=== PATIENT | female | born 1965 | race Caucasian/White ===

== ENCOUNTER → 2017-12-11 15:12 | Outpatient (CLI) | payer OTHER, SELFPAY ==
--- NOTE | 2017-12-11 | DI.MG.S_ITS ---
BILATERAL DIGITAL SCREENING MAMMOGRAM 3D/2D WITH CAD: 12/11/2017 CLINICAL: Routine screening. Family history of breast cancer. Comparison is made to exams dated: 03/21/2016 mammogram, 03/02/2012 mammogram, and 04/13/2009 mammogram - [facility]. There are scattered fibroglandular elements in both breasts. Current study was also evaluated with a Computer Aided Detection (CAD) system. No significant masses, calcifications, or other findings are seen in either breast. There has been no significant interval change. IMPRESSION: NEGATIVE There is no mammographic evidence of malignancy. A 1 year screening mammogram is recommended. This exam was interpreted at Station ID: [id number]. NOTE: For mammograms, a report in lay terms will be sent to the patient. Approximately 15% of breast malignancies will not be visualized mammographically. In the management of a palpable breast mass, a negative mammogram must not discourage biopsy of a clinically suspicious lesion. Electronically Signed By: Dmitriy gonzalez/tiera:12/11/2017 16:06:55 letter sent: Normal Exam ACR BI-RADS Category 1: Negative [id number]
== END ==
PROVIDERS: Family Provider Family Medicine; PCP Family Medicine; Visit Provider Family Medicine
DX: Z12.31 Encounter for screening mammogram for malignant neoplasm of breast (principal)
CPT/HCPCS: 77063; 77067

== ENCOUNTER → 2019-05-20 18:26 | Outpatient (CLI) | payer OTHER, SELFPAY ==
--- NOTE | 2019-05-20 18:31 | DI.MRI.S_ITS ---
PROCEDURE: MR HIP LT WO CON INDICATIONS: left hip pain, low back strain TECHNIQUE: Noncontrast coronal T1 spin echo and STIR through the bony pelvis. Coronal and axial T2 fast spin echo with fat saturation, sagittal T1 spin echo, and oblique axial T2 fast spin echo with fat saturation through the hip. COMPARISON: None. FINDINGS: Image quality: Excellent. Bones and joints: No discrete fracture line identified. There is a large left hip joint effusion. Severe left hip degeneration with full-thickness articular cartilage loss, subchondral sclerosis and spurring as well as cystic changes. Adjacent para-articular soft tissue edema presumably reactive. No evidence of osteonecrosis seen. Mild lower lumbar spondylosis. Right hip degenerative changes. Tendons and ligaments: The gluteus medius and minimus tendons appear intact, without associated muscle atrophy. The nearby proximal iliotibial band also appears intact. The iliopsoas tendon appears intact, without adjacent bursal fluid collections or evidence for impingement syndrome. The origin of the hamstring tendon is intact at the ischial tuberosity, as well as the associated sacrotuberous ligament. The straight and reflected heads of the rectus femoris muscle origin appear intact, as well as the conjoint tendon. The ligamentum teres appears intact where visualized. Labrum and cartilage: Severe macerated tear involving the anterosuperior and superior labrum. The superior segment is not well visualized. This finding likely chronic. There is prominent loculated appearing fluid adjacent to the superior labrum and extending to the left iliac wing which could be related to joint effusion, versus unusually large paralabral cyst The alpha angle of the femur is within normal limits at less than 55 degrees. Soft tissues: Minimal trochanteric bursal fluid/edema Quadratus femoris muscle demonstrates no internal edema to suggest ischiofemoral impingement. The proximal sciatic neurovascular bundle appears normal adjacent to the hamstring tendons. No free pelvic fluid. Bladder wall thickness is normal. Genitourinary structures and bowel loops appear normal where visualized. IMPRESSION: Severe left hip joint degeneration, with associated large effusion. Prominent cystic appearing fluid collection adjacent to the superior acetabulum could be extension of joint fluid and/or unusually large paralabral cyst. Macerated, complex tear involving the anterosuperior and superior labrum, probably chronic/degenerative Dictated by: Gerard Gooden M.D. on 05/23/2019 at 8:32 Approved by: Gerard Gooden M.D. on 05/23/2019 at 8:46
--- NOTE | 2019-05-20 18:31 | DI.MRI.S_ITS ---
PROCEDURE: MR LUMBAR SPINE WO CON INDICATIONS: low back pain, ongoing TECHNIQUE: Noncontrast sagittal T1 spin echo and T2 fast echo, sagittal STIR, axial T1 and T2 fast spin echo through the lumbar spine. In cases with scoliosis, additional coronal T2 fast spin echo may be performed. COMPARISON: None. FINDINGS: Image quality: Excellent. Alignment and Curvature: Grade 1 retrolisthesis of L1 on L2. Bone Marrow: No acute fracture notified. Multilevel degenerative endplate sclerosis and spurring. Diffuse facet arthropathy. Endplate degenerative signal changes most pronounced at L1-L2. Spinal Cord: Conus medullaris terminates at the L1-L2 level. Visualized cord demonstrates normal signal and size. Paraspinous Soft Tissues: No paravertebral masses. L1-L2: Mild central canal narrowing. Partial effacement of both lateral recesses with bilaterally symmetric appearance. Severe bilateral foraminal stenosis with nerve root compression. L2-L3: Mild central canal narrowing. Partial effacement of both lateral recesses with bilaterally symmetric appearance. Severe bilateral foraminal stenoses, with nerve root compression. L3-L4: Mild central canal narrowing. Lateral recesses appear patent. Severe right foraminal stenosis with nerve root compression. Mild left foraminal narrowing. L4-L5: Mild central canal narrowing. Partial effacement of both lateral recesses with bilaterally symmetric appearance. Moderate right foraminal stenosis with slight nerve root compression. Moderate left foraminal stenosis with nerve root compression. L5-S1: No central canal stenosis. Lateral recesses appear patent. Moderate left foraminal narrowing with nerve root compression. Mild-moderate right foraminal narrowing IMPRESSION: Grade 1 retrolisthesis of L1 on L2 Multilevel mild central canal narrowing Numerous, bilateral foraminal stenoses as detailed by spinal level above. Dictated by: Gerard Gooden M.D. on 05/23/2019 at 9:35 Approved by: Gerard Gooden M.D. on 05/23/2019 at 9:42
== END ==
PROVIDERS: Family Provider Family Medicine; PCP Family Medicine; Visit Provider Nurse Practitioner Family
DX: S39.012A Strain of muscle, fascia and tendon of lower back, initial encounter (principal); M25.552 Pain in left hip; M25.452 Effusion, left hip; S73.192A Other sprain of left hip, initial encounter; M16.12 Unilateral primary osteoarthritis, left hip; M47.816 Spondylosis without myelopathy or radiculopathy, lumbar region; M43.16 Spondylolisthesis, lumbar region; M48.061 Spinal stenosis, lumbar region without neurogenic claudication; M48.07 Spinal stenosis, lumbosacral region
CPT/HCPCS: 72148; 73721

== ENCOUNTER → 2019-06-28 10:13 | Outpatient (CLI) | payer OTHER, SELFPAY ==
--- NOTE | 2019-06-28 10:16 | DI.RAD.S_ITS ---
PROCEDURE: XR KNEE RT 3V INDICATIONS: right knee pain TECHNIQUE: 3 views of the knee were acquired. COMPARISON: [facility], CR, XR KNEE ARTHRITIC SERIES , 10/09/2015, 16:19. FINDINGS: Bones: No fractures or dislocations. No suspicious bony lesions. Moderate narrowing of the medial joint space. Scattered degenerative subchondral sclerosis and spurring. Bulky osteophytic spurring Soft tissues: Small joint effusion. IMPRESSION: Moderate right knee joint degeneration, slightly progressed since 10/09/15. Small joint effusion Dictated by: Gerard Gooden M.D. on 06/28/2019 at 11:16 Approved by: Gerard Gooden M.D. on 06/28/2019 at 11:19
--- NOTE | 2019-06-28 10:24 | DI.CT.S_ITS ---
PROCEDURE: CT LE LT W CON INDICATIONS: Unilateral primary osteoarthritis, left hip TECHNIQUE: Noncontrast 3 mm axial sections acquired through the bony pelvis. Additional 3 mm axial sections acquired through the symptomatic hip joint, with coronal and sagittal reformats. COMPARISON: [facility] [place], CR, XR PELVIS WITH LATERAL HIP LEFT, 06/03/2019, 16:45. FINDINGS: Image quality: Excellent. Bones: Severe left hip osteoarthritic changes are seen with near complete loss of superior articulating space, extensive subchondral sclerosis and cyst formation and prominent marginal osteophyte formation. Mild to moderate right hip joint osteoarthritic changes also noted. There is no fracture or dislocation. No evidence of avascular necrosis of femoral head. Soft tissues: There is no gross muscle or tendon abnormality. No significant joint effusion. Visualized portion of pelvis shows no free fluid or free air. No abnormal bowel wall thickening. Bilateral ureters or urinary bladder are within normal limits. No pelvic lymphadenopathy. IMPRESSION: 1. Severe left hip joint osteoarthritis and mild to moderate right hip joint osteoarthritis. No fracture or dislocation. No evidence of avascular necrosis of femoral head. 2. No gross soft tissue abnormality. Dictated by: [place] Balderas M.D. on 06/28/2019 at 11:57 Approved by: [place] Balderas M.D. on 06/28/2019 at 13:09
== END ==
PROVIDERS: Family Provider Family Medicine; PCP Nurse Practitioner Family; Visit Provider Orthopaedic Surgery
DX: M16.0 Bilateral primary osteoarthritis of hip (principal); M25.561 Pain in right knee; M17.11 Unilateral primary osteoarthritis, right knee; M25.461 Effusion, right knee
CPT/HCPCS: 73562; 73700

== ENCOUNTER → 2019-07-05 08:33 | Outpatient (CLI) | payer OTHER, SELFPAY ==
[2019-07-05 09:31] LABS: Add Manual Diff / Slide Review NO; Basophils Absolute Auto 0 /uL (0-100); Basophils Percent Auto 0.7 % (0-2); Eosinophils Absolute Auto 100 /uL (0-450); Eosinophils Percent Auto 2.6 % (2-4); Hematocrit 35.9 % (36-46); Lymphocytes Absolute Auto 1500 /uL (1100-4500); Lymphocytes Percent Auto 29.1 % (25-40); Mean Corpuscular HGB Conc 33.4 % (30-36); Mean Corpuscular Hemoglobin 27.4 PG (26-34); Mean Corpuscular Volume 82.1 fL (80-100); Monocytes Absolute Auto 400 /uL (0-900); Monocytes Percent Auto 7.1 % (3-14); Neutrophils Absolute Auto 3100 /uL (1500-7000); Neutrophils Percent Auto 60.5 % (50-75); Platelet Count 254 X10^3/uL (150-400); Red Blood Cell Count 4.37 X10^6/uL (4.0-5.2); Red Cell Distribution Width 12.9 % (11.6-14.8); White Blood Cell Count 5.1 X10^3/uL (4.5-11.0)
[2019-07-05 09:55] LABS: Carbon Dioxide 25 mmol/L (22-32); Chloride 102 mmol/L (98-107); HEMOLYSIS < 15 (0-50); Potassium 4.2 mmol/L (3.4-5.1); Sodium 138 mmol/L (137-145)
== END ==
PROVIDERS: PCP Nurse Practitioner Family; Visit Provider Orthopaedic Surgery
DX: Z01.818 Encounter for other preprocedural examination (principal); Z01.812 Encounter for preprocedural laboratory examination
CPT/HCPCS: 36415; 80051; 85025; 93005

== ENCOUNTER 2019-07-20 10:54 | Inpatient (IN) | payer OTHER, SELFPAY ==
[2019-07-15 13:37] VITALS: BMI 29.8
[2019-07-20] VITALS (11 sets, daily range): BP systolic 93–121; BP diastolic 54–79; PULSE 54–77; RESP 10–16; TEMP 36.1–36.9; O2SAT 12–100; BMI 27.6
--- NOTE | 2019-07-20 06:00 | DI.RAD.S_ITS ---
PROCEDURE: XR PELVIS 1-2V INDICATIONS: NEMO TECHNIQUE: 1 view of the lower pelvis acquired. COMPARISON: [facility] [place], CR, XR PELVIS WITH LATERAL HIP LEFT, 06/03/2019, 16:45. FINDINGS: Bones: Patient is status post left hip arthroplasty, with hardware components in expected positions. The hip joint appears congruent. The visualized bony structures appear intact. Mild right degeneration of lower lumbar spondylosis. Soft tissues: Overlying postoperative changes are noted. No suspicious soft tissue densities. IMPRESSION: Expected postoperative appearance Dictated by: Gerard Gooden M.D. on 07/20/2019 at 18:10 Approved by: Gerard Gooden M.D. on 07/20/2019 at 18:11
[2019-07-20] MEDS: PREGABALIN 75 MG CAPSULE PO (12:48)
[2019-07-20] MEDS: ACETAMINOPHEN 325 MG TABLET 975 MG PO (12:48)
[2019-07-20] MEDS: CELECOXIB 200 MG CAPSULE PO (12:48)
--- NOTE | 2019-07-20 14:11 | PM.PREOP ---
Pre-operative Note Interval Note History & Physical reviewed/Exam performed by Physician: Yes Changes to H&P: No
[2019-07-20] MEDS: LACTATED RINGERS 1,000 ML 42 ML IV ×2 (14:16→15:04)
[2019-07-20] MEDS: CEFAZOLIN 1 GM/50 ML FROZ.PIGGY IV (14:27)
[2019-07-20] MEDS: TRANEXAMIC ACID 1,000 MG VIAL 2000 MG INJ ×2 (14:50→15:40)
--- NOTE | 2019-07-20 15:00 | SUR.OPER ---
Lateral on padded OR bed. Gel axillary roll. Arms secured on padded armboard with pillow supporting top arm. Padded hip positioner braces x4 - anterior and posterior chest and pelvis. Additional gel pad used anterior pelvis. Gel pad under bottom leg from knee to foot and secured with tape over sheet.
[2019-07-20] MEDS: ROPIVACAINE 0.5% PF 5 MG/ML 20ML VIAL 60 ML INJ (15:03)
[2019-07-20] MEDS: MORPHINE 4 MG/ML INJ INJ (15:08)
[2019-07-20] MEDS: KETOROLAC 30 MG/ML VIAL IV (15:08)
--- NOTE | 2019-07-20 16:07 | P.OP_ITS ---
Operative Date/Time/Diagnoses Date of procedure: 07/20/19 Time of procedure: 16:07 Pre-op diagnosis: Left hip degenerative joint disease Post-op diagnosis: same Procedure & Clinicians Procedure: Left total hip arthroplasty (CPT code 67541 with specimen preparation assistant) Same procedure as scheduled: Yes Indications: Patient is an 54-year-old female with severe left hip DJD. The patient has pain with activities and at rest, limited ambulation and activity tolerance, difficulties with ADLs, and failure of conservative treatment. We have discussed the nature of condition, treatment options, risks and benefits, and patient elects to proceed with total hip arthroplasty and gives informed consent. Surgeon: Jefry Valladares Environmental Services Attendant: Zhen Peguero Anesthesia Type: General and Spinal Operative Notes Closure Type: primary Specimen(s): none sent Prosthetic devices, grafts, tissues, transplants, or devices: Acetabulum: Drake and Nephew R3 acetabular component size 50 mm Femoral component: Drake [employer] Nephew Anthology stem size 6 with standard offset Femoral head: 32 mm + 0 Oxinium Estimated Blood Loss (mL): 200 Procedure in detail: After satisfaction induction of anesthetic, and administration of IV antibiotics, the patient was positioned in the lateral decubitus position with all bony prominences well padded and pelvic position secured using a hip hospital receiving clerk positioning device. Left hip and lower extremity prepped and draped in the usual sterile fashion, 1st dose of intravenous harrison examic acid was administered, then a longitudinal incision was created centered over the greater trochanter and carried sharply through the skin and subcutaneous tissues down to the fascia hector which was divided longitudinally and retracted with a Charnley retractor. External rotators visualize, cut, tagged, and retracted posteriorly, then the capsule was cut in a T-type fashion with the corners tagged and retracted. Hip was dislocated and femoral neck cut made according to preoperative templating. Acetabular retractors then placed, and the acetabular labrum and osteophytes were excised. The acetabulum was then sequentially reamed to 49 mm with an excellent circumferential ream and fit with the trial. The trial component was removed and a permanent size 50 mm Drake and Nephew R3 acetabular component was selected, positioned, and impacted with satisfactory position and fixation achieved. Permanent liner was then inserted with the elevated lip directed posteriorly. Soft tissue then removed off the lateral femoral neck in the lateral neck was entered using a box osteotome. T- handled reamers placed down the canal followed by sequential broaching to 6 with the final broach left in place for trial reduction which demonstrated excellent leg length, range of motion, and stability characteristics with a 32 mm +4 trial ball. The trial and broach were removed, and a permanent size 6 Drake and Nephew Anthology stem was selected and inserted with excellent position and fixation achieved. Another trial reduction yielded the above characteristics so the trial ball was exchanged for a permanent 32 mm +4 Oxinium ball. The hip was irrigated and reduced and excellent leg length range of motion and stability characteristics were achieved and maintained. Periarticular tissues were infil trated with ropivacaine, morphine, and Toradol. The hip was copiously irrigated, and the capsule repaired with #2 Ethibond, and the piriformis was repaired back to the greater trochanter with the same. Fascia hector closed with interrupted #1 Ethibond sutures, and the subcutaneous tissues were closed in 2 layers of 0 Vicryl and 2 0 Vicryl. Skin was closed with angelique and sterile dressings applied. Second dose of tranexamic acid was administered intravenously, and the anesthetic was terminated. Complications: none Post-operative Condition: stable Disposition: PACU Plan for aftercare: Patient will be admitted to the acute care [facility], and anticipate discharge on postop day 1-2 with follow-up in office in 10-14 days. Outpatient physical therapy will be arranged and patient will continue to observe posterior hip precautions. Patient will continue use of postoperative Lovenox for 10 days postop.
[2019-07-20] MEDS: ONDANSETRON 4 MG/2 ML INJ IV (17:55)
[2019-07-20] MEDS: LACTATED RINGERS 1,000 ML 125 ML IV (17:55)
--- NOTE | 2019-07-20 19:40 | PC.NURSE ---
1700: Patient admitted from PACU to room 211 S/P Left NEMO by Dr. Valladares. Awake, alert, and pleasant. Oriented to room, environment, and plan of care. Call light within reach. Calls appropriately for assistance.
[2019-07-20] MEDS: HYDROCODONE/ACET 5/325 TABLET 1 TAB PO (23:25)
[2019-07-20] MEDS: CEFAZOLIN 2 GM/100 ML FROZ.PIGGY IV (23:25)
--- NOTE | 2019-07-20 23:50 | PC.NURSE ---
Gabriella shift note: Patient c/o pain to Left lower/mid thigh and incisional pain with movement. Strength to LLE 3+, able to move foot, full ROM. 2+ pulses, warm, pink, and sensation present to foot and upper thigh. Mild numbness to mid thigh. Medicated for pain as ordered.
[2019-07-21] VITALS (7 sets, daily range): BP systolic 94–118; BP diastolic 49–74; PULSE 86–103; RESP 16–18; TEMP 36.4–37.3; O2SAT 99–100
[2019-07-21] MEDS: ONDANSETRON 4 MG/2 ML INJ IV
[2019-07-21] MEDS: hydrOXYzine pamoate 25 MG CAPSULE PO ×3 (00:15→20:29)
[2019-07-21] MEDS: LACTATED RINGERS 1,000 ML 125 ML IV (02:09)
[2019-07-21] MEDS: HYDROCODONE/ACET 5/325 TABLET 1 TAB PO ×4 (05:02→20:28)
[2019-07-21] MEDS: CEFAZOLIN 2 GM/100 ML FROZ.PIGGY IV (05:03)
--- NOTE | 2019-07-21 05:08 | PC.NURSE ---
Pt is AxOx3, VSS, tolerating room air. Vomitted 100cc bile at start of shift. b/l SCDs on throughout night Pain has been well controlled so far with 1 vicodin and vistaril. Pt stated she thought the Vistaril really helped a lot. She reports most of her pain along with some numbness from her mid calf to mid thigh on her left leg. 1P FWW to bathroom, did well. Pt reporting this morning her being concerned over her left groin pain. States it's pretty bad and it happened a few months ago after she fell but it seems worse now. Will pass along to day shift and told her to bring up during rounds to the doctors
[2019-07-21 06:26] LABS: Hematocrit 27.4 % (36-46); Hemoglobin 9.3 g/dL (12.0-16.0)
[2019-07-21] MEDS: ENOXAPARIN 40 MG/0.4 ML SYRINGE SUBCUT (09:05)
--- NOTE | 2019-07-21 09:53 | P.PN_ITS ---
Subjective Subjective Date Patient Seen: 07/21/19 Time Patient Seen: 09:53 Interval history: Pain 7/10. Denies fever chills. No nausea vomiting. Patient does live alone. Her daughter may be available tomorrow to assist her when discharged home. Exam Vital Signs (past 8 hours): - 07/21/19 05:51 07/21/19 07:43 Temperature 98.6 F 97.6 F Pulse Rate 86 96 H Respiratory Rate 18 16 Blood Pressure 112/49 L 118/73 Pulse Oximetry 99 99 Oxygen Delivery Method Room Air Oxygen Flow Rate 0 Narrative Exam Narrative: 54-year-old female resting comfortably in bedside chair in no a pparent distress. Left hip dressing is clean, dry and intact. Motor functions intact distal left lower extremity. Left leg is warm and dry. Sensation grossly intact to light touch. Objective Labs Result Diagrams: 07/21/19 06:12 Labs: Laboratory Results - last 24 hr 07/21/19 06:12 Hgb 9.3 L Hct 27.4 L Assessment & Plan Post-op Postoperative Procedures: Procedures Operation Date: 07/20/19 13:45 Actual Procedures Side Surgeon p Total Hip Arthroplasty Left Jefry Valladares MD Postop day 1. Mobilize with physical therapy. Patient does live alone and may have assistance at home starting tomorrow. Depending on her progress she may be discharged home tomorrow and or Thursday. Posterior hip precautions.
--- NOTE | 2019-07-21 11:06 | PT.IIE ---
Current Diagnoses Unilateral primary osteoarthritis, left hip (07/20/19) Surgery Performed Operation Date: 07/20/19 13:45 Actual Procedures p Total Hip Arthroplasty(Left) - Jefry Valladares MD Surgical History (Last Reviewed 03/04/19 @ 11:21 by Steph Snell MD) Status post delivery Medical History (Last Updated 07/15/19 @ 14:16 by Toshia Ferraro RN) Anxiety (Acute) Carpal tunnel syndrome, bilateral (Acute) Depression (Acute) Heartburn (Acute) HLD (hyperlipidemia) (Acute) Lumbar foraminal stenosis (Acute 05/2019) Osteoarthritis (Acute) Pneumonia (Acute) Right knee pain (Acute 04/2019) Physical Therapy Inpatient Evaluation/Re-Eval M1 PT/OT-IP Prior Functional Status Start: 07/21/19 12:44 Freq: NEEDED Status: Active Protocol: Document 07/21/19 11:06 AB (Rec: 07/21/19 13:09 [id number]) Medical Review Prior Functional Status Medical History Reviewed Yes Communication able to make needs known Mobility and Gait pt stated tht she is modified independent with all mobilities and ambulation using a SPC indoors/outdoors Social History Household Members none Living Arrangements House Number of Floors (Floors) Two Floors Number of Stairs To Enter/Railing? has 3 steps without rails + 8 steps with R rail ascending to enter the house has 12 steps with R rail ascending to get to 2nd level bathroom Home Environment Standard Height Toilet,Walk in Shower Home Equipment Four Wheel Walker,Straight Cane,Bedside Commode,Raised Toilet Seat w/Armrests,Hand Held Shower Additional Social History Comment pt stated that her daughter will stay with her only until Thursday to assist her and just have neighbors/friends that will assist as needed. pt lives at [place] [id number] PT-IP Current Condition Start: 07/21/19 12:44 Freq: NEEDED Status: Active Protocol: Document 07/21/19 11:06 AB (Rec: 07/21/19 13:09 AB [id number]) Physical Therapy Current Condition Current Condition Evaluation Date 07/21/19 Treatment Diagnosis s/p L NEMO posterior approach; difficulty in walking Onset Date 07/20/2019 Precautions Posterior Hip Precautions No Hip Flexion > 90 degrees,No Hip Internal Rotation,No Hip Adduction Weight Bearing Status Weight Bearing Status Weight Bear as Tolerated Allowed Weight Bearing Amount (enter % LLE WBAT or #) (%) M3 PT-IP Subjective Start: 07/21/19 12:44 Freq: NEEDED Status: Active Protocol: Document 07/21/19 11:06 AB (Rec: 07/21/19 13:09 [id number]) Subjective Physical Therapy Visit Type Type Initial Evaluation Visit Start Time 11:06 Visit Stop Time 11:50 Total Visit Minutes 44 Number of JACK SETTER Visits 0 Physical Therapy Visit Comments Patient Comments pt agreeable to do PT but refused to stay up on the chair; c/o feeling really tired. Therapy Pain Assessment Pain When Pain Assessed At Rest Pain Present Pain Present Pain Reported Location Left Groin Intensity 4 Scale Used increases to 7/10 with mobility Pain Management Techniques Apply Cold,Re-positioning, Timing of Activity with Medications M4 PT-IP Mobility and Gait Start: 07/21/19 12:44 Freq: NEEDED Status: Active Protocol: Document 07/21/19 11:06 AB (Rec: 07/21/19 13:09 [id number]) PT-Bed Mobility Assessment Supine to Sit Supine to Sit Moderate Assistance,1 Person Assistance Sit to Supine Sit to Supine Maximum Assistance,1 Person Assistance PT-Transfer Assessment Sit to and From Stand Sit to and from Stand Moderate Assistance,1 Person Assistance,Use of Upper Extremities Equipment Transfer Assistive Device Gait Belt,Front Wheeled Walker Orthotic/Prosthetic Devices or Brace: No Transfers Transfer Destination Bed,Chair Transfer Technique ambulated using FWW Transfer Ability Level of Assist Moderate Assistance,1 Person Assistance,Use of Upper Extremities Comments Mobility Comments pt supine in bed and agreed to do PT. educated on hip precautions. BP: 116/75 completed supine to sit mod A and cues for LE mobility. pt was able to sit on EOB SBA. completed sit to stand mod A and cues to maintain hip precautions. ambulated in room towards the chair mod A using FWW ~ 12 ft. BP: 127/83 . pt refused to stay up on the chair for lunch. stated that she is just tired and wants to rest. completed sit to stand from the chair mod A and cues and completed step transfer to the bed using FWW min to mod A and cues. required max A to assist BLE up into the bed for sit to supine. positioned pt on the bed. call light and table placed within reach. Gait Assessment Gait Gait Assistance Required: Moderate Assistance,1 Person Assist Distance (Feet) 12 Able to Maintain Weight Bearing Status Yes During Gait Assistive Devices Assistive Device Gait Belt,Front Wheeled Walker Orthotic/Prosthetic Devices or Brace: No Gait Deviations General Gait Pattern Antalgic,Decreased Stride Length,Decreased Feet Clearance,Step-to Gait Factors Limiting Gait Function Factors Limiting Gait Function Decreased Activity Tolerance, Decreased Strength,Limited Range of Motion,Pain,Poor Balance,Poor Safety Awareness PT-Balance Assessment Sitting Balance and Reactions Static Sitting Balance Ability Good Dynamic Sitting Balance Ability Fair Standing Balance and Reactions Static Standing Balance Ability Fair Dynamic Standing Balance Ability Fair Device Used FWW M5 PT-IP Objective Assessments Start: 07/21/19 12:44 Freq: NEEDED Status: Active Protocol: Document 07/21/19 11:06 (Rec: 07/21/19 13:09 [id number]) Orientation Orientation/Cognition Level of Alertness Alert Orientation Name,Place,Situation Language Function Ability No Deficits Noted Safety Awareness Decreased Safety Awareness Memory Description Short Term Impaired Gross Range of Motion Lower Extremity ROM Assessment Left Impaired Impairments LLE guarding affecting PROM Strength Lower Extremity Strength Assessment Bilaterally Impaired Comments Strength Comments RLE 4-/5 LLE: 3-/5 Sensation Assessment Sensation Gross Sensation WNL Muscle Tone Muscle Tone WNL Yes M6 PT-IP Treatment Start: 07/21/19 12:44 Freq: NEEDED Status: Active Protocol: Document 07/21/19 11:06 (Rec: 07/21/19 13:09 [id number]) Physical Therapy Treatment Exercises Exercises Heel Slides Education Education Provided Precautions,Weight Bearing Status,Post-Op Packet,Safety M7 PT-IP Assessment and Plan Start: 07/21/19 12:44 Freq: NEEDED Status: Active Protocol: Document 07/21/19 11:06 AB (Rec: 07/21/19 13:09 [id number]) PT Summary Assessment and Plan Potential Rehabilitation Potential Good Status of Condition at Evaluation Evolving Summary Impairments Pain,ROM,Strength,Balance, Coordination,Sensation,Tone, Cognition,Bed Mobility, Transfers,Gait,Activity Tolerance Assessment Summary pt required mod A with mobility and unable to tolerate much activity today due to pain and c/o feeling tired. Pt lives alone and daughter will assist only until thursday and no consistent assistance afterwards. pt requires cues to adhere to her hip precautions. pt will require 24/7 assist at this time and will require SNF rehab to improve strength and functional mobility. Will continue to assess progress. Goals Bed Mobility Goal Standby Assistance Transfer Goal Standby Assistance,Front Wheeled Walker Gait Goal Standby Assistance,Front Wheel Walker Gait Distance 150 Other Goals up/down 3 steps using SPC/BUSINESS SPECIALIST + 8 steps with R rail ascending SBA Days to Meet Goals 5 Frequency of Treatment Frequency Of Treatment Twice a Day Treatment Plan Physical Therapy Treatment Plan Bed Mobility Training,Transfer Training,Gait Training, Therapeutic Exercise,Balance Retraining,Post Op Education, Discharge Planning,Hot or Cold Pack,Neuromuscular Re-ed, Coordination Retraining,Manual Therapy Recommendations To Nursing Amount of Assist Needed 1 Person Assist Discharge Recommendations PT Discharge Recommendations SNF Rehab Equipment Needed for Home Before FWW: pt stated that she will Discharge borrow one Transportation Needs at Discharge Private Vehicle,Wheelchair/ Cabulance
--- NOTE | 2019-07-21 13:34 | CM.IDA ---
Initial DCP Assessment Note: Pt is a [address] of [facility]. Pt is POD#1 from left hip surgery by Dr Valladares. PCP: Millie Loco Payer: [place] Reviewed chart. Met w/pt this morning, explained role. Pt admits that she thought she could DC to a SNF because [employer] customer service stated her benefit included SNF. Pt states she was educated by a local SNF that [employer] often will not authorize a scheduled joint replacement, and this was two days before her surgery. Pt decided to go through with surgery and she will be depending on her dtr to assist over the weekend, dtr available until Thursday morning. Pt states she has friends that could check on her after that. Pt seems the most concerned w/being able to keep her wood burning stove/fire going since this is her only source of heat. PT is currently recommending SNF because pt is requiring mod assist w/low activity tolerance today. UR FIDENCIO Hernandez has identified an inpt. authorization from [employer] w/o an initial length of stay which allows pt to comfortably remain admitted for inpt care, as long as medically necessary, DC home expected POD#2 or 3. OT eval might be helpful if pt still requires mod assist tomorrow AM ? Following closely for coordination of safe DCP. Private pay SNF option was not reviewed today. Pt may benefit from Home Health if [facility] will accept this referral and will take [place] ? MILO Godoy Discharge Planning/Care Management CM Discharge Assessment Start: 07/21/19 13:30 Freq: Status: Active Protocol: Document 07/21/19 13:31 JUDY (Rec: 07/21/19 13:34 JUDY [id number]) Discharge Planning Assessment Assigned Charging Board Operator MILO Malloy DPOA/Assigned Designee Name Maria T Epsarza dtr Contact Information [phone] Advance Directives? No History Provided By Patient Prior Living Arrangements House Household Members none Type of transporation used prior to Drives own vehicle admit Independent with ADL's Yes Is patient alert and oriented? Yes Barriers to Discharge Yes Comment Mod assist today, lives alone, wood burning fireplace Discharge Plan Home Transportation Arrangement Family Review Status In Process
--- NOTE | 2019-07-21 16:32 | PT.IPTN ---
Current Diagnoses Unilateral primary osteoarthritis, left hip (07/20/19) Surgery Performed Operation Date: 07/20/19 13:45 Actual Procedures p Total Hip Arthroplasty(Left) - eJfry Valladares MD Physical Therapy Treatment Note M2 PT-IP Current Condition Start: 07/21/19 12:44 Freq: NEEDED Status: Active Protocol: Document 07/21/19 11:06 AB (Rec: 07/21/19 13:09 AB [id number]) Physical Therapy Current Condition Current Condition Evaluation Date 07/21/19 Treatment Diagnosis s/p L NEMO posterior approach; difficulty in walking Onset Date 07/20/2019 Precautions Posterior Hip Precautions No Hip Flexion > 90 degrees,No Hip Internal Rotation,No Hip Adduction Weight Bearing Status Weight Bearing Status Weight Bear as Tolerated Allowed Weight Bearing Amount (enter % LLE WBAT or #) (%) M3 PT-IP Subjective Start: 07/21/19 12:44 Freq: NEEDED Status: Active Protocol: Document 07/21/19 16:00 SP (Rec: 07/21/19 17:01 SP [id number]) Subjective Physical Therapy Visit Type Type Treatment Note Visit Start Time 16:00 Visit Stop Time 16:32 Total Visit Minutes 32 Number of COOKIE MIXER HELPER Visits 1 Physical Therapy Visit Comments Patient Comments Pt agreeable to work with PT. Patient Goals Try some walking and stair mgt to see how can do at this time. Therapy Pain Assessment Pain When Pain Assessed During Mobility Pain Present Pain Present Pain Reported Location Left Thigh Intensity 4 Scale Used 0/10 at rest, 3-4/10 during mobility Pain Behaviors Facial Grimacing,Restlessness Pain Management Techniques Apply Cold,Re-positioning, Timing of Activity with Medications M4 PT-IP Mobility and Gait Start: 07/21/19 12:44 Freq: NEEDED Status: Active Protocol: Document 07/21/19 16:00 SP (Rec: 07/21/19 17:01 SP [id number]) PT-Bed Mobility Assessment Supine to Sit Supine to Sit Minimal Assistance,1 Person Assistance Scooting Scooting to Edge of Bed Standby Assistance Scooting Up and Down in Bed Standby Assistance PT-Transfer Assessment Sit to and From Stand Sit to and from Stand Standby Assistance,Contact Guard Assistance,Use of Upper Extremities Equipment Transfer Assistive Device Gait Belt,Front Wheeled Walker Orthotic/Prosthetic Devices or Brace: No Transfers Transfer Destination Bed Transfer Technique Pt ambulated using FWW Transfer Ability Level of Assist Standby Assistance,Contact Guard Assistance,Use of Upper Extremities Comments Mobility Comments Pt was laying in bed when arrived. Pt recalled 3/3 L hip precautions. Supine <> Sitting with Min A for LLE repositioning out of/into EOB. Pt was able to scoot to EOB SBA, scoot up in bed when came back from a walk/stair mgt. sit <> stand SBA. COOKIE MIXER HELPER placed pillow under LLE with positioning to assist maintain no IR. Pt was laying in bed with bed alarm armed, call light and allneeds inreach when left. Gait Assessment Gait Gait Assistance Required: Contact Guard Assist Distance (Feet) 15 Able to Maintain Weight Bearing Status Yes During Gait Assistive Devices Assistive Device Gait Belt,Front Wheeled Walker Orthotic/Prosthetic Devices or Brace: No Gait Deviations General Gait Pattern Antalgic,Decreased Stride Length,Decreased Feet Clearance,Step-to Gait Factors Limiting Gait Function Factors Limiting Gait Function Decreased Activity Tolerance, Decreased Strength,Limited Range of Motion,Pain,Poor Balance,Poor Safety Awareness Comments Gait Comments Pt was able to ambulate from L side of bed to chair using FWW CGA- SBA 15 ft, then chair to w/c in hallway, 5ft w/c to stairs and back to w/c, w/c inhallway to L side of bed 7 ft. Cuing for L knee flexion, heel toe gait with upright posture for normal progression patterning, improved post cues from walking on toes and slight supination. Stair Climbing Assessment Evaluation Level of Assist On Stairs Minimal Assistance,1 Person Assistance Devices Stair Climbing Assistive Devices Straight Cane,Right Railing Technique/Endurance Stair Climbing Direction Ascend and Descend Stair Climbing Technique Step to Step Number of Steps Climbed 3 Stair Climbing Set # Repetitions (reps) 1 Comments Stair Climbing Comments Pt was able to ascend 3 stairs using R HR and SPC in LUE step to patterning Min A with very brief single stance time on LLE, heavy WB on BUE, no LOB. PT-Balance Assessment Sitting Balance and Reactions Static Sitting Balance Ability Good Dynamic Sitting Balance Ability Fair Standing Balance and Reactions Static Standing Balance Ability Fair Dynamic Standing Balance Ability Fair Device Used FWW M5 PT-IP Objective Assessments Start: 07/21/19 12:44 Freq: NEEDED Status: Active Protocol: Document 07/21/19 11:06 AB (Rec: 07/21/19 13:09 AB [id number]) Orientation Orientation/Cognition Level of Alertness Alert Orientation Name,Place,Situation Language Function Ability No Deficits Noted Safety Awareness Decreased Safety Awareness Memory Description Short Term Impaired Gross Range of Motion Lower Extremity ROM Assessment Left Impaired Impairments LLE guarding affecting PROM Strength Lower Extremity Strength Assessment Bilaterally Impaired Comments Strength Comments RLE 4-/5 LLE: 3-/5 Sensation Assessment Sensation Gross Sensation WNL Muscle Tone Muscle Tone WNL Yes M6 PT-IP Treatment Start: 07/21/19 12:44 Freq: NEEDED Status: Active Protocol: Document 07/21/19 16:00 SP (Rec: 07/21/19 17:01 SP [id number]) Physical Therapy Treatment Education Education Provided Precautions,Weight Bearing Status,Safety M7 PT-IP Assessment and Plan Start: 07/21/19 12:44 Freq: NEEDED Status: Active Protocol: Document 07/21/19 16:00 SP (Rec: 07/21/19 17:01 SP [id number]) PT Summary Assessment and Plan Potential Rehabilitation Potential Good Status of Condition at Evaluation Evolving Summary Impairments Pain,ROM,Strength,Balance, Coordination,Sensation,Tone, Cognition,Bed Mobility, Transfers,Gait,Activity Tolerance Assessment Summary pt required min A with bed mobility, SBA- CGA during transfer and gait using FWW and Min A 3 stair mgt RHR adn SPC wtih LUE. Pt lives alone and daughter will assist only until thursday and no consistent assistance afterwards due to a student in college and work schedules. pt requires min cues to adhere to her hip precautions no IR . pt will require 24/7 assist at this time and will require SNF rehab to improve strength and functional mobility. Will continue to assess progress. Goals Bed Mobility Goal Standby Assistance Transfer Goal Standby Assistance,Front Wheeled Walker Gait Goal Standby Assistance,Front Wheel Walker Gait Distance 150 Other Goals up/down 3 steps using SPC/ORGANISATION AND METHODS ANALYST + 8 steps with R rail and SPC LUE ascending SBA Days to Meet Goals 5 Frequency of Treatment Frequency Of Treatment Twice a Day Treatment Plan Physical Therapy Treatment Plan Bed Mobility Training,Transfer Training,Gait Training, Therapeutic Exercise,Balance Retraining,Post Op Education, Discharge Planning,Hot or Cold Pack,Neuromuscular Re-ed, Coordination Retraining,Manual Therapy Recommendations To Nursing Amount of Assist Needed 1 Person Assist Discharge Recommendations PT Discharge Recommendations SNF Rehab Equipment Needed for Home Before FWW: pt stated that she will Discharge borrow one Transportation Needs at Discharge Private Vehicle,Wheelchair/ Cabulance
[2019-07-22 00:30] VITALS: BP 107/66; PULSE 97; RESP 16; TEMP 37.2; O2SAT 99
[2019-07-22] MEDS: HYDROCODONE/ACET 5/325 TABLET 1 TAB PO ×4 (03:51→21:06)
[2019-07-22 03:55] VITALS: BP 112/67; PULSE 90; RESP 18; TEMP 36.8; O2SAT 100
[2019-07-22 08:10] VITALS: BP 105/57; PULSE 91; RESP 16; TEMP 36.6; O2SAT 100
[2019-07-22] MEDS: ENOXAPARIN 40 MG/0.4 ML SYRINGE SUBCUT (08:25)
[2019-07-22] MEDS: SODIUM CHLORIDE 0.9% FLUSH 10 ML IV ×2 (08:26→20:51)
--- NOTE | 2019-07-22 09:55 | PM.PNPO.1 ---
Subjective Subjective Date Patient Seen: 07/22/19 Time Patient Seen: 09:55 Interval history: Patient complains of mild-moderate pain in L hip. States her pain is improving. Mobilizing with PT, recommends SNF. Voiding without difficulty or assistance. Denies fever, chills, chest pain, shortness of breath. Exam Vital Signs (past 8 hours): - 07/22/19 03:55 Temperature 98.2 F Pulse Rate 90 Respiratory Rate 18 Blood Pressure 112/67 Pulse Oximetry 100 Oxygen Delivery Method Room Air Oxygen Flow Rate 0 Narrative Exam Narrative: 54 year old F laying comfortably in bed, in no apparent distress. A&Ox3. Dressing CDI, SCDs in place. Sensory function grossly intact to light touch in LE BL. Able to actively dorsiflex/plantar flex BL. Dorsalis pedis 2+ BL. Calves warm, soft, compressible, non tender to palpation. Objective Labs Result Diagrams: 07/21/19 06:12 Assessment & Plan Post-op Postoperative Procedures: Procedures Operation Date: 07/20/19 13:45 Actual Procedures Side Surgeon p Total Hip Arthroplasty Left Jefry Valladares MD Postoperative status narrative: Continue current pain management Continue SCDs for DVT prophylaxis Continue mobilizing with PT Most likely discharge to SNF
--- NOTE | 2019-07-22 10:27 | PC.NURSE ---
Patients dressing to her L.hip is cdi, vicodin given for pain of 4/10. She gave herself her lovenox this morning and was not to excited to do it. She tolerated this well...Ate well at breakfast. She will be working with physical therapy this morning. Pain medication effective for discomfort.
[2019-07-22 11:45] VITALS: BP 105/66; PULSE 106; RESP 12; TEMP 36.4; O2SAT 100
--- NOTE | 2019-07-22 12:22 | PT.IPTN ---
Current Diagnoses Unilateral primary osteoarthritis, left hip (07/20/19) Surgery Performed Operation Date: 07/20/19 13:45 Actual Procedures p Total Hip Arthroplasty(Left) - Jefry Valladares MD Physical Therapy Treatment Note M2 PT-IP Current Condition Start: 07/21/19 12:44 Freq: NEEDED Status: Active Protocol: Document 07/21/19 11:06 AB (Rec: 07/21/19 13:09 AB [id number]) Physical Therapy Current Condition Current Condition Evaluation Date 07/21/19 Treatment Diagnosis s/p L NEMO posterior approach; difficulty in walking Onset Date 07/20/2019 Precautions Posterior Hip Precautions No Hip Flexion > 90 degrees,No Hip Internal Rotation,No Hip Adduction Weight Bearing Status Weight Bearing Status Weight Bear as Tolerated Allowed Weight Bearing Amount (enter % LLE WBAT or #) (%) M3 PT-IP Subjective Start: 07/21/19 12:44 Freq: NEEDED Status: Active Protocol: Document 07/22/19 11:47 KS (Rec: 07/22/19 15:54 KS [id number]) Subjective Physical Therapy Visit Type Type Treatment Note Visit Start Time 11:47 Visit Stop Time 12:22 Total Visit Minutes 35 Notes Pts daughter present for caregiver training. Pts daugther can only stay w/ pt until Thursday and then pt will be alone. Number of SWITCHBOARD AND CONTROL ROOM OPERATOR Visits 2 Physical Therapy Visit Comments Patient Comments Pt agreeable to work with PT. Therapy Pain Assessment Pain When Pain Assessed During Mobility Pain Present Pain Present Pain Reported Location Left Thigh Intensity 5 Scale Used Numeric (1 - 10) Pain Behaviors Guarding Pain Management Techniques Re-positioning M4 PT-IP Mobility and Gait Start: 07/21/19 12:44 Freq: NEEDED Status: Active Protocol: Document 07/22/19 11:47 KS (Rec: 07/22/19 15:54 KS [id number]) PT-Bed Mobility Assessment Scooting Scooting to Edge of Bed Standby Assistance Scooting Up and Down in Bed Standby Assistance PT-Transfer Assessment Sit to and From Stand Sit to and from Stand Standby Assistance,Contact Guard Assistance,Use of Upper Extremities Equipment Transfer Assistive Device Gait Belt,Front Wheeled Walker Orthotic/Prosthetic Devices or Brace: No Transfers Transfer Destination Chair,Toilet Transfer Technique Pt ambulated using FWW Transfer Ability Level of Assist Standby Assistance,Contact Guard Assistance,Use of Upper Extremities Comments Mobility Comments Pt was sitting in chair upon arrival from therapy w/ daugther in room. SBA for scooting to edge of chair and SBA to CGA for sit<>stand w/ FWW. Pt then requested to use the bathroom, SBA for stand<> sit<>stand from toilet. Pt then washed hands and brushed teeth at sink for 2 min and was able to remain balanced and weight bearing through L LE. Pt then ambulated outside to hallway and sat in w/c CGA to be taken to stairs, returned to room and sat back in chair CGA. Pt able to recall all hip precautions. Pt still has low tolerance for activity and fatigues quickly following stairs and ambulation. Gait Assessment Gait Gait Assistance Required: Contact Guard Assist Distance (Feet) 50 Able to Maintain Weight Bearing Status Yes During Gait Assistive Devices Assistive Device Gait Belt,Front Wheeled Walker Orthotic/Prosthetic Devices or Brace: No Gait Deviations General Gait Pattern Antalgic,Decreased Stride Length,Decreased Feet Clearance,Step-to Gait Factors Limiting Gait Function Factors Limiting Gait Function Decreased Activity Tolerance, Decreased Strength,Limited Range of Motion,Pain,Poor Balance,Poor Safety Awareness Comments Gait Comments Pt able to ambulate CGA ~50 ft today. Pt has antalgic gait and decreased stride length and foot clearance due to pain and limited ROM and decreased actvity tolerance. Cues for upright posture, pts gait improved w/ further distance. Stair Climbing Assessment Evaluation Level of Assist On Stairs Minimal Assistance,1 Person Assistance Devices Stair Climbing Assistive Devices Straight Cane,Right Railing Technique/Endurance Stair Climbing Direction Ascend and Descend Stair Climbing Technique Step to Step Number of Steps Climbed 3 Stair Climbing Set # Repetitions (reps) 3 Comments Stair Climbing Comments Pt was able to ascend/descend 3 steps x3 w/ step to step gait pattern and Min A for hand hold while other hand using SPC for first set. Min cues for sequencing. Pt then did second set of stairs w/ hand hold and R rail, Pt and daugther then completed caregiver training for 3rd set of stairs, pts daughter was able to provide effective guarding, cues, and handhold assist while patient ascended/ descended 3 steps. PT-Balance Assessment Sitting Balance and Reactions Static Sitting Balance Ability Good Dynamic Sitting Balance Ability Fair Standing Balance and Reactions Static Standing Balance Ability Fair Dynamic Standing Balance Ability Fair Device Used FWW M5 PT-IP Objective Assessments Start: 07/21/19 12:44 Freq: NEEDED Status: Active Protocol: Document 07/21/19 11:06 AB (Rec: 07/21/19 13:09 AB [id number]) Orientation Orientation/Cognition Level of Alertness Alert Orientation Name,Place,Situation Language Function Ability No Deficits Noted Safety Awareness Decreased Safety Awareness Memory Description Short Term Impaired Gross Range of Motion Lower Extremity ROM Assessment Left Impaired Impairments LLE guarding affecting PROM Strength Lower Extremity Strength Assessment Bilaterally Impaired Comments Strength Comments RLE 4-/5 LLE: 3-/5 Sensation Assessment Sensation Gross Sensation WNL Muscle Tone Muscle Tone WNL Yes M6 PT-IP Treatment Start: 07/21/19 12:44 Freq: NEEDED Status: Active Protocol: Document 07/22/19 11:47 KS (Rec: 07/22/19 15:54 KS [id number]) Physical Therapy Treatment Education Education Provided Precautions,Weight Bearing Status,Safety M7 PT-IP Assessment and Plan Start: 07/21/19 12:44 Freq: NEEDED Status: Active Protocol: Document 07/22/19 11:47 KS (Rec: 07/22/19 15:54 KS [id number]) PT Summary Assessment and Plan Potential Rehabilitation Potential Good Status of Condition at Evaluation Evolving Summary Impairments Pain,ROM,Strength,Balance, Coordination,Sensation,Tone, Cognition,Bed Mobility, Transfers,Gait,Activity Tolerance Assessment Summary Pt showed slight increased tolerance for activity today and reported less feelings of fatigue, but still is not able to tolerate walking much distance and fatigued quickly after stairs. Pt was SBA to CGA for mobility and transfers and ambulation. Min A for stair training. Pts daughter present and completed caregiver training on stairs, daughter was able to provide correct cuing and assist to pt . Pt has 11 steps to enter home, 3 w/o hand rail followed by 8 w/ R rail. Pt and daughter would benefit from additional caregiver training to assess carryover. As of now , pt still requires handhold assist for stairs to enter home and pts daughter is only available to stay w/ pt until Thursday. Pt will still benefit from SNF rehab to assess strength deficits. Goals Bed Mobility Goal Standby Assistance Transfer Goal Standby Assistance,Front Wheeled Walker Gait Goal Standby Assistance,Front Wheel Walker Gait Distance 150 Other Goals up/down 3 steps using SPC/POWER BARKER OPERATOR + 8 steps with R rail and SPC LUE ascending SBA Days to Meet Goals 5 Frequency of Treatment Frequency Of Treatment Twice a Day Treatment Plan Physical Therapy Treatment Plan Bed Mobility Training,Transfer Training,Gait Training, Therapeutic Exercise,Balance Retraining,Post Op Education, Discharge Planning,Hot or Cold Pack,Neuromuscular Re-ed, Coordination Retraining,Manual Therapy Recommendations To Nursing Amount of Assist Needed 1 Person Assist Discharge Recommendations PT Discharge Recommendations SNF Rehab Equipment Needed for Home Before Pts daugther getting FWW from Discharge soroptimist. Transportation Needs at Discharge Private Vehicle,Wheelchair/ Cabulance
--- NOTE | 2019-07-22 16:19 | CM.DPNOTE ---
DCP Cont Spoke w/pt, her dtr Maria T and friend Een at [facility] today and reviewed DCP. Pt asks if there is any chance to DC to SNF? Pt cannot pay of of pocket and according to this LEAD SEWAGE PLANT OPERATOR's review of medical chart and therapy notes, pt will likely not qualify for SNF authorization through [place], pt understands but is disappointed. Pt has friends on [place] that can help w/shopping and errands, dtr getting DME today and can stay w/pt through the w/e at her home. Pt admits PT/OT would be helpful and [facility] [place] [facility] [place] [facility] [facility], pt's [place] will cover this service and f/u is expected Thursday. [facility] will need HH order and DC summary upon DC, expected tomorrow, Thursday07.23.19. P: DC expected Thursday, home w/supportive family and friends, [facility] PT/OT via poMILO Klein
[2019-07-22 16:27] VITALS: BP 118/62; PULSE 99; RESP 16; TEMP 37.4; O2SAT 98
--- NOTE | 2019-07-22 16:55 | PT.IPTN ---
Current Diagnoses Unilateral primary osteoarthritis, left hip (07/20/19) Surgery Performed Operation Date: 07/20/19 13:45 Actual Procedures p Total Hip Arthroplasty(Left) - Jefry Valladares MD Physical Therapy Treatment Note M2 PT-IP Current Condition Start: 07/21/19 12:44 Freq: NEEDED Status: Active Protocol: Document 07/21/19 11:06 AB (Rec: 07/21/19 13:09 AB [id number]) Physical Therapy Current Condition Current Condition Evaluation Date 07/21/19 Treatment Diagnosis s/p L NEMO posterior approach; difficulty in walking Onset Date 07/20/2019 Precautions Posterior Hip Precautions No Hip Flexion > 90 degrees,No Hip Internal Rotation,No Hip Adduction Weight Bearing Status Weight Bearing Status Weight Bear as Tolerated Allowed Weight Bearing Amount (enter % LLE WBAT or #) (%) M3 PT-IP Subjective Start: 07/21/19 12:44 Freq: NEEDED Status: Active Protocol: Document 07/22/19 16:37 KS (Rec: 07/22/19 17:55 KS [id number]) Subjective Physical Therapy Visit Type Type Treatment Note Visit Start Time 16:37 Visit Stop Time 16:55 Total Visit Minutes 18 Notes Pts daughter present throughout treatment for continued caregiver training. Number of FARO DEALER Visits 3 Physical Therapy Visit Comments Patient Comments Pt agreeable to work with PT. Therapy Pain Assessment Pain When Pain Assessed During Mobility Pain Present Pain Present Pain Reported Location Left Thigh Intensity 2 Scale Used Numeric (1 - 10) Pain Management Techniques Apply Cold,Re-positioning, Timing of Activity with Medications M4 PT-IP Mobility and Gait Start: 07/21/19 12:44 Freq: NEEDED Status: Active Protocol: Document 07/22/19 16:37 KS (Rec: 07/22/19 17:55 KS [id number]) PT-Bed Mobility Assessment Scooting Scooting to Edge of Bed Standby Assistance Scooting Up and Down in Bed Standby Assistance PT-Transfer Assessment Sit to and From Stand Sit to and from Stand Standby Assistance,Contact Guard Assistance,Use of Upper Extremities Equipment Transfer Assistive Device Gait Belt,Front Wheeled Walker Orthotic/Prosthetic Devices or Brace: No Transfers Transfer Destination Chair Transfer Technique Pt ambulated using FWW Transfer Ability Level of Assist Standby Assistance,Contact Guard Assistance,Use of Upper Extremities Comments Mobility Comments Pt sitting in chair upon arrival from therapy w/ daughter in room. Pt agreeable to ambulate w/ PT. SBA for scooting and SBA to CGA for sit<>stand w/ FWW no cues required. Pts daughter provided SBA to CGA for remainder of treatment including ambulation. Pt ambulated ~250 ft w/ FWW and SBA to CGA and min cues for upright posture, heel toe walking, FWW management provided by davon. Pt still has mostly step to gait pattern and needs encouragement to weight bear and attempt equal step length. Pts gait improved w/ distance. Pt then returned to sit in chair SBA, pt left in chair w/ all needs in reach. Gait Assessment Gait Gait Assistance Required: Standby Assistance,Contact Guard Assist,1 Person Assist Distance (Feet) 250 Able to Maintain Weight Bearing Status Yes During Gait Assistive Devices Assistive Device Gait Belt,Front Wheeled Walker Orthotic/Prosthetic Devices or Brace: No Gait Deviations General Gait Pattern Antalgic,Decreased Stride Length,Decreased Feet Clearance,Step-to Gait Factors Limiting Gait Function Factors Limiting Gait Function Decreased Activity Tolerance, Decreased Strength,Limited Range of Motion,Pain,Poor Balance,Poor Safety Awareness Comments Gait Comments Please refer to mobility section for details. PT-Balance Assessment Sitting Balance and Reactions Static Sitting Balance Ability Good Dynamic Sitting Balance Ability Good Standing Balance and Reactions Static Standing Balance Ability Good Dynamic Standing Balance Ability Fair Device Used FWW M5 PT-IP Objective Assessments Start: 07/21/19 12:44 Freq: NEEDED Status: Active Protocol: Document 07/21/19 11:06 AB (Rec: 07/21/19 13:09 AB [id number]) Orientation Orientation/Cognition Level of Alertness Alert Orientation Name,Place,Situation Language Function Ability No Deficits Noted Safety Awareness Decreased Safety Awareness Memory Description Short Term Impaired Gross Range of Motion Lower Extremity ROM Assessment Left Impaired Impairments LLE guarding affecting PROM Strength Lower Extremity Strength Assessment Bilaterally Impaired Comments Strength Comments RLE 4-/5 LLE: 3-/5 Sensation Assessment Sensation Gross Sensation WNL Muscle Tone Muscle Tone WNL Yes M6 PT-IP Treatment Start: 07/21/19 12:44 Freq: NEEDED Status: Active Protocol: Document 07/22/19 16:37 KS (Rec: 07/22/19 17:55 KS [id number]) Physical Therapy Treatment Education Education Provided Precautions,Weight Bearing Status,Safety Other Treatments Other Treatment Performed Caregiver training M7 PT-IP Assessment and Plan Start: 07/21/19 12:44 Freq: NEEDED Status: Active Protocol: Document 07/22/19 16:37 KS (Rec: 07/22/19 17:55 KS [id number]) PT Summary Assessment and Plan Potential Rehabilitation Potential Good Status of Condition at Evaluation Evolving Summary Impairments Pain,ROM,Strength,Balance, Coordination,Sensation,Tone, Cognition,Bed Mobility, Transfers,Gait,Activity Tolerance Assessment Summary Pt agreeable to ambulate w/ therapy this afternoon. SBA to CGA for transfers w/ FWW and no cues required for proper technique. Pts daughter successfully provided SBA to CGA during ambulation and appropriate cues for upright posture, and FWW management, and heel toe walking. Will assess stairs again tomorrow w/ pt and daughter to assess carryover and pts level of assist needed. Goals Bed Mobility Goal Standby Assistance Transfer Goal Standby Assistance,Front Wheeled Walker Gait Goal Standby Assistance,Front Wheel Walker Gait Distance 150 Other Goals up/down 3 steps using SPC/JAVA PROGRAMMER ANALYST + 8 steps with R rail and SPC LUE ascending SBA Days to Meet Goals 5 Frequency of Treatment Frequency Of Treatment Twice a Day Treatment Plan Physical Therapy Treatment Plan Bed Mobility Training,Transfer Training,Gait Training, Therapeutic Exercise,Balance Retraining,Post Op Education, Discharge Planning,Hot or Cold Pack,Neuromuscular Re-ed, Coordination Retraining,Manual Therapy Recommendations To Nursing Amount of Assist Needed 1 Person Assist Discharge Recommendations PT Discharge Recommendations Home with Assistance,Home Health,SNF Rehab Equipment Needed for Home Before Pts daugther got FWW and quad Discharge cane from [employer]. Transportation Needs at Discharge Private Vehicle,Wheelchair/ Cabulance
[2019-07-22 19:51] VITALS: BP 111/76; PULSE 100; RESP 16; O2SAT 99
[2019-07-22] MEDS: CALCIUM CARBONATE 500 MG TAB PO (20:51)
[2019-07-23 00:30] VITALS: BP 97/64; PULSE 95; RESP 18; TEMP 37.1; O2SAT 98
[2019-07-23 04:32] VITALS: BP 112/65; PULSE 86; RESP 18; TEMP 37; O2SAT 100
[2019-07-23 07:40] VITALS: BP 115/60; PULSE 86; RESP 16; TEMP 36.2; O2SAT 100
[2019-07-23] MEDS: HYDROCODONE/ACET 5/325 TABLET 1 TAB PO ×2 (09:21→12:56)
[2019-07-23] MEDS: SODIUM CHLORIDE 0.9% FLUSH 10 ML IV (09:21)
[2019-07-23] MEDS: ENOXAPARIN 40 MG/0.4 ML SYRINGE SUBCUT (09:22)
--- NOTE | 2019-07-23 11:08 | PT.IPTN ---
Current Diagnoses Unilateral primary osteoarthritis, left hip (07/20/19) Surgery Performed Operation Date: 07/20/19 13:45 Actual Procedures p Total Hip Arthroplasty(Left) - Jefry Valladares MD Physical Therapy Treatment Note M2 PT-IP Current Condition Start: 07/21/19 12:44 Freq: NEEDED Status: Active Protocol: Document 07/21/19 11:06 AB (Rec: 07/21/19 13:09 AB [id number]) Physical Therapy Current Condition Current Condition Evaluation Date 07/21/19 Treatment Diagnosis s/p L NEMO posterior approach; difficulty in walking Onset Date 07/20/2019 Precautions Posterior Hip Precautions No Hip Flexion > 90 degrees,No Hip Internal Rotation,No Hip Adduction Weight Bearing Status Weight Bearing Status Weight Bear as Tolerated Allowed Weight Bearing Amount (enter % LLE WBAT or #) (%) M3 PT-IP Subjective Start: 07/21/19 12:44 Freq: NEEDED Status: Active Protocol: Document 07/23/19 10:28 KS (Rec: 07/23/19 12:33 KS [id number]) Subjective Physical Therapy Visit Type Type Treatment Note Visit Start Time 10:28 Visit Stop Time 11:08 Total Visit Minutes 40 Notes Pts daughter present throughout treatment for caregiver training. Physical Therapy Visit Comments Patient Comments Pt agreeable to work with PT. Therapy Pain Assessment Pain When Pain Assessed During Mobility Pain Present Pain Present Pain Reported Location Left Thigh Intensity 2 Scale Used Numeric (1 - 10) Pain Management Techniques Re-positioning,Timing of Activity with Medications M4 PT-IP Mobility and Gait Start: 07/21/19 12:44 Freq: NEEDED Status: Active Protocol: Document 07/23/19 10:28 KS (Rec: 07/23/19 12:33 KS [id number]) PT-Bed Mobility Assessment Supine to Sit Supine to Sit Minimal Assistance,1 Person Assistance Sit to Supine Sit to Supine Contact Guard Assistance,1 Person Assistance Scooting Scooting to Edge of Bed Standby Assistance Scooting Up and Down in Bed Standby Assistance PT-Transfer Assessment Sit to and From Stand Sit to and from Stand Standby Assistance,Use of Upper Extremities Equipment Transfer Assistive Device Gait Belt,Front Wheeled Walker Orthotic/Prosthetic Devices or Brace: No Transfers Transfer Destination Bed,Chair Transfer Technique Pt ambulated using FWW Transfer Ability Level of Assist Standby Assistance,Use of Upper Extremities Comments Mobility Comments Pt in chair upon arrival from therapy w/ daughter in room. Pt is SBA for scooting to edge of chair and sit<>stand from chair, but requires CGA to Min A for LLE guidance into and out of bed. Pts daughter/ caregiver was able to provide all necessary assist and cues throughout treatment. Gait Assessment Gait Gait Assistance Required: Standby Assistance Distance (Feet) 275 Able to Maintain Weight Bearing Status Yes During Gait Assistive Devices Assistive Device Gait Belt,Front Wheeled Walker Orthotic/Prosthetic Devices or Brace: No Gait Deviations General Gait Pattern Antalgic,Decreased Stride Length,Decreased Feet Clearance,Step-to Gait Factors Limiting Gait Function Factors Limiting Gait Function Decreased Activity Tolerance, Decreased Strength,Limited Range of Motion,Pain,Poor Balance,Poor Safety Awareness Comments Gait Comments Pt ambulated w/ FWW and SBA provided by daughter ~275 feet today. Pts daughter provided pt w/ min cues for heel toe walking, upright posture, and FWW management. Pts gait has improved from fully step to to step through w/ shorter stance phase on LLE. Stair Climbing Assessment Evaluation Level of Assist On Stairs Minimal Assistance,1 Person Assistance Devices Stair Climbing Assistive Devices Straight Cane,Large Base Quad Cane,Right Railing Technique/Endurance Stair Climbing Direction Ascend and Descend Stair Climbing Technique Step to Step Number of Steps Climbed 3 Stair Climbing Set # Repetitions (reps) 2 Comments Stair Climbing Comments Pt was able to ascend/descend 3 steps w/ quad can and handhold assist provided by daughter for first step, and handhold assist and R rail use during second step. Pt and daughter required min cues for sequencing of quad cane and LE, but were then able to complete successfully. Pt has slight unsteadiness when descending w/ quad cane and hand hold assist but was able to recover w/ cues to daughter for more stabilization w/ handhold. Pt and daughter state that they feel safe to complete stairs at home and that stairs are shorter and wider, so quad cane will be easier to use. PT-Balance Assessment Sitting Balance and Reactions Static Sitting Balance Ability Good Dynamic Sitting Balance Ability Good Standing Balance and Reactions Static Standing Balance Ability Good Dynamic Standing Balance Ability Fair Device Used FWW M5 PT-IP Objective Assessments Start: 07/21/19 12:44 Freq: NEEDED Status: Active Protocol: Document 07/21/19 11:06 AB (Rec: 07/21/19 13:09 AB [id number]) Orientation Orientation/Cognition Level of Alertness Alert Orientation Name,Place,Situation Language Function Ability No Deficits Noted Safety Awareness Decreased Safety Awareness Memory Description Short Term Impaired Gross Range of Motion Lower Extremity ROM Assessment Left Impaired Impairments LLE guarding affecting PROM Strength Lower Extremity Strength Assessment Bilaterally Impaired Comments Strength Comments RLE 4-/5 LLE: 3-/5 Sensation Assessment Sensation Gross Sensation WNL Muscle Tone Muscle Tone WNL Yes M6 PT-IP Treatment Start: 07/21/19 12:44 Freq: NEEDED Status: Active Protocol: Document 07/23/19 10:28 KS (Rec: 07/23/19 12:33 KS [id number]) Physical Therapy Treatment Education Education Provided Precautions,Weight Bearing Status,Safety Other Treatments Other Treatment Performed Caregiver training for stairs, ambulation, getting into and out of bed, and transfers. M7 PT-IP Assessment and Plan Start: 07/21/19 12:44 Freq: NEEDED Status: Active Protocol: Document 07/23/19 10:28 KS (Rec: 07/23/19 12:33 KS [id number]) PT Summary Assessment and Plan Potential Rehabilitation Potential Good Status of Condition at Evaluation Evolving Summary Impairments Pain,ROM,Strength,Balance, Coordination,Sensation,Tone, Cognition,Bed Mobility, Transfers,Gait,Activity Tolerance Assessment Summary Pt was SBA for most mobility, transfers, and ambulation today - provided by daughter. Pt needed CGA to MIN A for LLE guidance into and out of bed, which her daughter provided effectively. Pt ambulated w/ FWW and SBA w/ daughter giving cues for funds transfer clerk, heel toe, and FWW mgmt. Pt and daughter safely completed 3x2 stairs w/ cues for sequencing of quad cane and handhold assist. Pt and daughter feel safe to return home. Goals Bed Mobility Goal Standby Assistance Transfer Goal Standby Assistance,Front Wheeled Walker Gait Goal Standby Assistance,Front Wheel Walker Gait Distance 150 Other Goals up/down 3 steps using SPC/CARTOGRAPHY/MAPPING TECHNICIAN + 8 steps with R rail and SPC LUE ascending SBA Days to Meet Goals 5 Frequency of Treatment Frequency Of Treatment Twice a Day Treatment Plan Physical Therapy Treatment Plan Bed Mobility Training,Transfer Training,Gait Training, Therapeutic Exercise,Balance Retraining,Post Op Education, Discharge Planning,Hot or Cold Pack,Neuromuscular Re-ed, Coordination Retraining,Manual Therapy Recommendations To Nursing Amount of Assist Needed 1 Person Assist Discharge Recommendations PT Discharge Recommendations Home with Assistance,Home Health Transportation Needs at Discharge Private Vehicle,Wheelchair/ Cabulance
--- NOTE | 2019-07-23 11:56 | PM.DS.1 ---
History of Present Illness History of Present Illness Date Patient Seen: 07/23/19 Time Patient Seen: 11:56 Chief complaint: [id number] Narrative: Patient is an 54-year-old female with severe left hip DJD. The patient has pain with activities and at rest, limited ambulation and activity tolerance, difficulties with ADLs, and failure of conservative treatment. We have discussed the nature of condition, treatment options, risks and benefits, and patient elects to proceed with total hip arthroplasty and gives informed consent. Discharge Providers Provider Date of admission: 07/20/19 10:54 Discharge Date: 07/23/19 Primary care physician: ROBERTO Sanchez Consults: 07/20/19 17:06 Consult to Discharge Planning Routine Comment: Consult to Physical Therapy Evaluate & Treat Comment: Physician Instructions: post op NEMO protocol Consult to Respiratory Therapy Evaluate & Treat Comment: Physician Instructions: Evaluate and treat Discharge provider: Susie Ruff PA-C Summary Hospital Course Discharge Diagnosis: s/p NEMO Spinal stenosis Depression Chronic low back pain Hip arthritis Hospital Course: Jessica was admitted for a left total hip arthroplasty posterior approach with Dr. Valladares. Hospital course was unremarkable. On postop day 2 she is ready to discharge home. She is requiring [place] for pain control. She mobilized well with physical therapy today. She is aware of her posterior hip precautions. She is taking Lovenox for DVT prophylaxis. She knows to take baby aspirin after she finishes Lovenox. She is eating and voiding without difficulty or assistance. Status at Discharge Functional status at discharge: uses cane/walker Exam Vital Signs (past 8 hours): - 07/23/19 04:32 07/23/19 07:40 Temperature 98.6 F 97.1 F L Pulse Rate 86 86 Respiratory Rate 18 16 Blood Pressure 112/65 115/60 Pulse Oximetry 100 100 Oxygen Delivery Method Room Air Oxygen Flow Rate 0 Narrative Exam Narrative: Patient sitting in bedside chair in no acute distress. She is alert oriented x3. Calves are soft, compressible, nontender bilaterally. Dressing on left hip is CDI, Aquacel be applied prior to discharge. Her pain is well controlled with [place]. She is advised to take this instead of the oxycodone that she has at home. Objective Labs Result Diagrams: 07/21/19 06:12 Discharge Plan Discharge Plan Patient Disposition: Home Discharge orders & Medications Prescriptions: New enoxaparin [Lovenox] 40 mg/0.4 mL Syringe 40 mg subcut DAILY 6 Days Qty: 2.4 RF: 0 hydrocodone-acetaminophen 5-325 mg Tablet 1 tab PO Q4HR PRN (Reason: Pain, Moderate (4-6)) Qty: 30 RF: 0 acetaminophen [Tylenol] 325 mg capsule 650 mg PO Q4H PRN (Reason: pain) Qty: 30 RF: 0 Continued cyclobenzaprine 10 mg tablet 10 mg PO BEDTIME PRN (Reason: muscle spasm) Qty: 30 RF: 0 ibuprofen [Motrin IB] 200 mg Capsule 400 - 600 mg PO Q6H PRN (Reason: Pain) RF: 0 Follow up/Referrals: Millie Loco ARNP [Primary Care Provider] - Jefry Valladares MD [Physician] - Visit Report/Discharge Packet Instructions: DI for Hip Replacement, Enoxaparin Injection, Hydrocodone/Acetaminophen (By mouth) Discharge Data Primary Care Provider: Millie Loco
--- NOTE | 2019-07-23 13:30 | PC.NURSE ---
Discharge home: IV dc'd intact. Bulky L hip dressing replaced with Aquacel dressing per new order. Incision was well-approximated with angelique, no active bleeding or drainage noted, no erythema to surrounding skin. Reviewed all d/c info and meds with patient. She has admin her own Lovenox and, despite not really being excited about it, is willing and able to do it at home. Instructed to follow all instructions from MD/PA and PT. Hip precautions as discussed. Instructed not to drive while taking Vicodin, and to ask outpatient PT when it's safe to drive. All personal belongings collected and sent with patient and daughter at discharge. Given script for Vicodin, other scripts sent to [facility]: Power electronically. Verbalized understanding of all d/c info and stated no further questions. Wheeled out to private vehicle by nursing staff.
--- NOTE | 2019-07-23 15:14 | CM.DPNOTE ---
DC Note DC home today as expected, w/family, necessary DME, and [facility] to provide PT/OT Thursday, via pov JW
== END 2019-07-23 13:45 | disposition home or self-care (01) | DRG 470 ==
PROVIDERS: Admitting Provider Orthopaedic Surgery; PCP Nurse Practitioner Family; Referring Provider Orthopaedic Surgery; Visit Provider Orthopaedic Surgery
PROC: 0SRB0JZ Replacement of Left Hip Joint with Synthetic Substitute, Open Approach (ICD-10-PCS; CPT 27130; principal; 2019-07-20 13:45)
DX: M16.12 Unilateral primary osteoarthritis, left hip (principal); Z00.00 Encounter for general adult medical examination without abnormal findings; Z13.6 Encounter for screening for cardiovascular disorders
CPT/HCPCS: 36415; 72170; 80053; 80061; 85014; 85018; 85027; 94760; 97116; 97162; 97530; C1776; J0690; J1650; J1885; J2250; J2270; J2405; J2704; J3010

== ENCOUNTER → 2019-07-20 11:28 | Outpatient (CLI) | payer OTHER, SELFPAY ==
[2019-07-20 12:00] LABS: Hematocrit 37.4 % (36-46); Hemoglobin 12.5 g/dL (12.0-16.0); Mean Corpuscular HGB Conc 33.4 % (30-36); Mean Corpuscular Hemoglobin 27.3 PG (26-34); Mean Corpuscular Volume 81.7 fL (80-100); Platelet Count 245 X10^3/uL (150-400); Red Blood Cell Count 4.58 X10^6/uL (4.0-5.2); Red Cell Distribution Width 13.2 % (11.6-14.8); White Blood Cell Count 5.5 X10^3/uL (4.5-11.0)
[2019-07-20 12:20] LABS: Alanine Aminotransferase 15 IU/L (<35); Albumin 4.4 g/dL (3.5-5.0); Albumin Globulin Ratio 1.3 (1.0-2.8); Alkaline Phosphatase 108 U/L (38-126); Aspartate Aminotransferase 26 IU/L (14-36); BUN Creatinine Ratio 25.7 (6-22); Bilirubin Total 0.4 mg/dL (0.2-1.3); Blood Urea Nitrogen 18 mg/dL (7-17); Carbon Dioxide 27 mmol/L (22-32); Chloride 104 mmol/L (98-107); Cholesterol 214 mg/dL (140-199); Estimated Glomerular Filt Rate > 60.0 mL/min (>60); Globulin 3.5 g/dL (1.7-4.1); Glucose 103 mg/dL (70-100); HDL Cholesterol 40 mg/dL (40-60); HEMOLYSIS < 15 (0-50); LDL Cholesterol Calculated 152 mg/dL (<100); Potassium 3.9 mmol/L (3.4-5.1); Sodium 141 mmol/L (137-145); Total Protein 7.9 g/dL (6.3-8.2); Triglycerides 110 mg/dL (35-150)
== END ==
PROVIDERS: PCP Nurse Practitioner Family; Referring Provider Nurse Practitioner Family; Visit Provider Nurse Practitioner Family
DX: Z00.00 Encounter for general adult medical examination without abnormal findings (principal); Z13.6 Encounter for screening for cardiovascular disorders
CPT/HCPCS: 36415; 80053; 80061; 85027

== ENCOUNTER → 2019-12-28 13:26 | Outpatient (CLI) | payer OTHER, SELFPAY ==
[2019-07-20 17:54] VITALS: BMI 27.6
[2019-12-28 14:18] LABS: Add Manual Diff / Slide Review NO; Basophils Absolute Auto 0 /uL (0-100); Basophils Percent Auto 0.5 % (0-2); Eosinophils Absolute Auto 100 /uL (0-450); Eosinophils Percent Auto 1.6 % (2-4); Hematocrit 37.2 % (36-46); Hemoglobin 12.3 g/dL (12.0-16.0); Lymphocytes Absolute Auto 2500 /uL (1100-4500); Lymphocytes Percent Auto 32.3 % (25-40); Mean Corpuscular HGB Conc 33.1 % (30-36); Mean Corpuscular Hemoglobin 27.3 PG (26-34); Mean Corpuscular Volume 82.6 fL (80-100); Monocytes Absolute Auto 600 /uL (0-900); Neutrophils Absolute Auto 4600 /uL (1500-7000); Neutrophils Percent Auto 58.6 % (50-75); Platelet Count 269 X10^3/uL (150-400); Red Blood Cell Count 4.51 X10^6/uL (4.0-5.2); Red Cell Distribution Width 13.1 % (11.6-14.8); White Blood Cell Count 7.8 X10^3/uL (4.5-11.0)
[2019-12-28 15:47] LABS: BUN Creatinine Ratio 28.6 (6-22); Blood Urea Nitrogen 22 mg/dL (7-17); Calcium 10.4 mg/dL (8.4-10.2); Carbon Dioxide 28 mmol/L (22-32); Chloride 105 mmol/L (98-107); Estimated Glomerular Filt Rate > 60.0 mL/min (>60); Glucose 86 mg/dL (70-100); HEMOLYSIS < 15 (0-50); Potassium 4.4 mmol/L (3.4-5.1); Sodium 139 mmol/L (137-145)
== END ==
PROVIDERS: PCP Nurse Practitioner Family; Referring Provider Orthopaedic Surgery; Visit Provider Orthopaedic Surgery
DX: Z01.812 Encounter for preprocedural laboratory examination (principal)
CPT/HCPCS: 36415; 80048; 85025

== ENCOUNTER → 2020-01-06 15:04 | Outpatient (CLI) | payer OTHER, SELFPAY ==
[2019-07-20 17:54] VITALS: BMI 27.6
[2020-01-09 20:37] LABS: COVID19 Sendout Not Detected (Not Detect)
== END ==
PROVIDERS: PCP Nurse Practitioner Family; Visit Provider Physician Assistant
DX: Z11.59 Encounter for screening for other viral diseases (principal)
CPT/HCPCS: 87635

== ENCOUNTER 2020-01-09 08:59 | Day surgery (SDC) | payer OTHER, SELFPAY ==
[2019-07-20 17:54] VITALS: BMI 27.6
[2020-01-04 07:37] VITALS: BMI 30.4
[2020-01-09] VITALS (13 sets, daily range): BP systolic 87–147; BP diastolic 54–92; PULSE 52–74; RESP 10–19; TEMP 36.1–37.2; O2SAT 96–100; BMI 30.4
--- NOTE | 2020-01-09 06:00 | DI.RAD.S_ITS ---
PROCEDURE: XR KNEE RT 1TO2V INDICATIONS: post op total knee TECHNIQUE: 2 view(s) of the knee acquired. COMPARISON: [facility], , XR KNEE RT 3V, 06/28/2019, 10:34. FINDINGS: Bones: Patient is status post knee joint arthroplasty. Hardware components are in expected positions. Visualized bony structures are intact. Soft tissues: Overlying postoperative changes are noted. IMPRESSION: Post right total knee arthroplasty changes with anatomic right knee alignment. Dictated by: South Balderas M.D. on 01/09/2020 at 16:47 Approved by: South Balderas M.D. on 01/09/2020 at 16:47
[2020-01-09] MEDS: CELECOXIB 200 MG CAPSULE PO (09:37)
[2020-01-09] MEDS: PREGABALIN 75 MG CAPSULE PO ×2 (09:37)
[2020-01-09] MEDS: ACETAMINOPHEN 325 MG TABLET 975 MG PO (09:38)
[2020-01-09] MEDS: LACTATED RINGERS 1,000 ML 42 ML IV ×2 (09:41→11:26)
--- NOTE | 2020-01-09 09:45 | PM.PREOP ---
Pre-operative Note COVID-19 COVID-19 status: Negative Result date/Date tested (Pos, Neg/Pending): 01/09/20 Interval Note History & Physical reviewed/Exam performed by Physician: Yes Changes to H&P: No
[2020-01-09 10:22] LABS: COVID19 -Nasal RAPID Negative (Negative)
[2020-01-09] MEDS: CEFAZOLIN 2 GM/100 ML FROZ.PIGGY IV (10:30)
[2020-01-09] MEDS: TRANEXAMIC ACID 1,000 MG VIAL 1000 MG INJ ×2 (10:48→11:50)
--- NOTE | 2020-01-09 11:05 | SUR.OPER ---
Supine on padded OR bed. Pillow under head, arms secured on padded armboards <90 degree abduction. Safety belt across torso. Non-operative leg secured with tape over blanket over lower leg. Operative leg secured in [place]o positioner. Foam padded brace at thigh of operative leg.
--- NOTE | 2020-01-09 11:05 | PM.PROC.1 ---
Procedures Date/Time Date of procedure: 01/09/20 Time of procedure: 10:15 General Procedure description: Ultrasound guided adductor canal nerve block for post op pain control after right total knee arthroplasty by Dr. Laura. Risk and benefits of procedure discussed with patient. ASA monitoring applied to patient. Skin site was prepped with chlorhexidine and allowed to fully dry. Sterile gloves, mask, hat and probe cover were used to maintain sterility. 2% lidocaine and 30ga needle was used to make a small skin wheal at needle insertion site. Under ultrasound guidance, a 21ga 100mm [place] needle was directed into the adductor canal near femoral artery and saphenous nerve at the level of mid thigh. Patient reported no parasthesias. After negative aspiration, 20 mL 0.5% ropivicaine were injected around saphenous nerve. Patient tolerated procedure well.
[2020-01-09] MEDS: BUPIVACAINE 0.25% W/ EPI 30 ML VIAL 60 ML INJ (11:09)
[2020-01-09] MEDS: BUPIVACAINE LIPOSOME 266 MG/20 ML VIAL INJ (11:10)
[2020-01-09] MEDS: MORPHINE 4 MG/ML INJ SUBCUT (11:11)
--- NOTE | 2020-01-09 12:08 | PM.OP.1 ---
Operative Date/Time/Diagnoses Date of procedure: 01/09/20 Time of procedure: 12:08 Pre-op diagnosis: Right knee osteoarthritis Post-op diagnosis: same Procedure & Clinicians Procedure: Right total knee replacement Same procedure as scheduled: Yes Indications: The patient has had progressively worsening right knee pain with radiographic changes consistent with arthritis. Non-operative management has failed and the patient has requested total knee replacement. The risks, benefits and alternatives to surgery were discussed with the patient prior to proceeding. Risks discussed included, but were not limited to, failure to relieve pain, stiffness, infection, nerve damage, deep venous thrombosis, pulmonary embolism, stroke, coma, heart attack, permanent paralysis and , as well as the potential need for eventual revision of the prosthetic. Surgeon: Ezra Laura Janitorial Maintenance Worker: Zhen Peguero Click Yes if Unassisted: No Anesthesia Type: Spinal, Sedation and Local Operative Notes Findings: Severe tricompartmental osteoarthritis worst in the medial and patellofemoral compartments. Closure Type: primary Specimen(s): none sent Prosthetic devices, grafts, tissues, transplants, or devices: Implants used in this procedure were manufactured by the [employer] and included the BCS II Journey total knee replacement with a size 4 right Oxinium femoral component, a size 3 right non porous tibial tray, an 11 mm cross-linked tibial insert, and a 32 mm oval Hyacinth II patella. Applied: implant(s) Estimated Blood Loss (mL): 25 Blood products transfused: none Tourniquet time (min): 50 Procedure in detail: The patient was seen in the pre-operative area, where the patient identified the right knee as the operative site and this was marked with my initials. The patient received pre-operative antibiotics, and was taken to the operating room and placed on the operative table in the supine position. After satisfactory anesthesia, a time analysis clerk out was performed. The right leg was encircled with a tourniquet about the proximal thigh, and the leg was prepared from the toes to the tourniquet with ChloroPrep in the usual fashion and draped through sterile drapes. The leg was elevated and exsanguinated with Eschmark bandage and the tourniquet inflated to 250 mmHg pressure. The knee was approached through an approximately 18 cm incision centered over the patella and carried into the knee through a medial parapatellar arthrotomy. The anterior osteophytes and soft tissues were removed. The rotational landmarks of Palm's line and the transepicondylar axis were marked on the femur with electrocautery, and intramedullary guide holes for the femur and tibia were created. The distal femoral cut was made in 6 degrees of valgus using the intramedullary guide at the +2 cut setting due to her flexion contracture. The proximal tibial cut was then made using the intramedullary guide, taking 9 mm of bone off the less involved side. The extension gap was checked and the rotation of the femoral component confirmed with the gap balancing system. The anterior, posterior and chamfer cuts were then made. The posterior osteophytes and soft tissues were then removed. The posterior capsule was injected with part of a mixture of 60 ml 0.25% Marcaine mixed with 20 ml Exparel and 4 mg of morphine for post-operative pain control. The remainder of this mixture was injected into the capsule and subcutaneous tissues during cement curing. The tibia was prepared with the rotation set by an extra medullary guide. Trial tibial and femoral components were then placed and the intercondylar notch cut through the femoral trial. Range of motion was 0-135 degrees, with good stability throughout the range. The patella was then cut to accommodate the patellar prosthetic. There was no need for a lateral release. The trials were then removed, and the femoral hole plugged with a bone plug. The bone was prepared with pulsatile lavage, and dried with a sponge. Cement was applied and the final prosthetics placed. Excess cement was removed during and after cement curing. After confirming there was no extruded cement posteriorly, the final tibial insert was placed. The knee was copiously irrigated and the tourniquet deflated. Hemostasis was obtained. The capsule was closed with interrupted # 2 polyester suture. The subcutaneous layer was closed with 3-0 Vicryl, and the skin with a running 3-0 V-Lock suture and Dermabond. An Aquacel Ag dressing was applied and the patient was taken to recovery having tolerated the procedure well. Complications: none Post-operative Condition: stable Disposition: PACU Plan for aftercare: The patient will be maintained on a standard total knee replacement protocol with weight bearing as tolerated. The patient will receive aspirin and sequential compression devices for DVT prophylaxis. The patient will be discharged home when safe for the home environment.
[2020-01-09] MEDS: hydrOXYzine pamoate 25 MG CAPSULE PO (14:10)
[2020-01-09] MEDS: HYDROMORPHONE 0.5 MG INJ 0.2 MG IV (14:10)
[2020-01-09] MEDS: LACTATED RINGERS 1,000 ML 100 ML IV ×2 (14:23→22:19)
--- NOTE | 2020-01-09 15:30 | PC.NURSE ---
Addendum entered by Kartik Lowry R.N. 01/09/20 15:35: Patient ate some crackers and juice, denies nausea, but worried about her stomach getting upset so declining ibuprofen at this time. Reported pain to right thigh and buttocks, dilaudid IV given as ordered with good relief (see EMAR). call light within reach. Original Note: Patient arrived post op, vss, denies pain. Oriented to room and call light, call light placed within reach. Right knee with surgical dressing (aquacel) in place wrapped with KELSEA wrap remains CDI. IV fluids started as ordered.
[2020-01-09] MEDS: IBUPROFEN 400 MG TABLET PO (16:10)
[2020-01-09] MEDS: OXYCODONE IR 10 MG TABLET PO ×2 (16:19→21:03)
--- NOTE | 2020-01-09 17:01 | PT.IIE ---
Current Diagnoses Unilateral primary osteoarthritis, right knee (01/09/20) Surgery Performed Operation Date: 01/09/20 10:45 Actual Procedures p Total Knee Arthroplasty(Right) - Ezra Laura MD Surgical History (Last Updated 01/04/20 @ 07:44 by Toshia Ferraro, RN) History of total left hip arthroplasty (Acute 07/20/19) Status post delivery Medical History (Last Updated 07/15/19 @ 14:16 by Toshia Ferraro RN) Anxiety (Acute) Carpal tunnel syndrome, bilateral (Acute) Depression (Acute) Heartburn (Acute) HLD (hyperlipidemia) (Acute) Lumbar foraminal stenosis (Acute 05/2019) Osteoarthritis (Acute) Pneumonia (Acute) Right knee pain (Acute 04/2019) Physical Therapy Inpatient Evaluation/Re-Eval M1 PT/OT-IP Prior Functional Status Start: 01/09/20 13:30 Freq: NEEDED Status: Active Protocol: Document 01/09/20 16:45 AW (Rec: 01/09/20 17:01 AW [id number]) Medical Review Prior Functional Status Medical History Reviewed Yes Communication WNL Mobility and Gait Pt uses a SPC ~80% of the time and a FWW the other 20% when she is in too much pain or is too fatigued. 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 Activities of Daily Living and IADL's IND Social History Household Members none Living Arrangements House Number of Floors (Floors) Two Floors Number of Stairs To Enter/Railing? 2 steps without railing + 8 steps with R rail ascending to enter the front door. Once inside, pt must climb 12 steps with R rail ascending to her bedroom/bathroom. She will be able to stay on the bedroom level for several days. Home Environment Standard Height Toilet,Walk in Shower Home Equipment Front Wheel Walker,Four Wheel Walker,Quad Cane,Straight Cane ,Bedside Commode,Raised Toilet Seat w/Armrests,Hand Held Shower Employment Status Self-Employed Additional Social History Comment Pt lives alone on [address]. Pt's daughter, Maria T, will stay with the pt 2-3 weeks at discharge to provide assist. M2 PT-IP Current Condition Start: 01/09/20 13:30 Freq: NEEDED Status: Active Protocol: Document 01/09/20 16:45 AW (Rec: 01/09/20 17:01 AW [id number]) Physical Therapy Current Condition Current Condition Evaluation Date 01/09/20 Treatment Diagnosis R TKA; difficulty in walking Onset Date 01/09/20 Weight Bearing Status Weight Bearing Status Weight Bear as Tolerated M3 PT-IP Subjective Start: 01/09/20 13:30 Freq: NEEDED Status: Active Protocol: Document 01/09/20 16:45 AW (Rec: 01/09/20 17:01 AW [id number]) Subjective Physical Therapy Visit Type Type Initial Evaluation Visit Start Time 15:33 Visit Stop Time 15:52 Total Visit Minutes 19 Physical Therapy Visit Comments Patient Comments Pt is in pain but willing to participate with PT Patient Goals Pt plans to return home with her daughter assisting Therapy Pain Assessment Pain When Pain Assessed During Mobility Pain Present Pain Present Pain Reported Location Left Thigh Intensity 8 Scale Used Numeric (0 - 10) Pain Management Techniques Apply Cold,Re-positioning, Timing of Activity with Medications M4 PT-IP Mobility and Gait Start: 01/09/20 13:30 Freq: NEEDED Status: Active Protocol: Document 01/09/20 16:45 AW (Rec: 01/09/20 17:01 AW [id number]) PT-Transfer Assessment Sit to and From Stand Sit to and from Stand Standby Assistance,Use of Upper Extremities Equipment Transfer Assistive Device Gait Belt,Front Wheeled Walker Transfers Transfer Destination Chair,Toilet Transfer Technique pt ambulated with FWW Transfer Ability Level of Assist Standby Assistance Comments Mobility Comments Pt has recent history of L NEMO and is accustomed to using a FWW. She was reclined in the chair upon PT arrival, requesting to use the toilet. She stood from the chair SBA and ambulated with FWW to the toilet. She transferred to and from the toilet SBA. After voiding, pt ambulated around the room ~30 feet with FWW and transferred back to the chair SBA. Pt was positioned in the chair with legs elevated, call light and all needs in reach, fresh ice packs applied . Gait Assessment Gait Gait Assistance Required: Standby Assistance Distance (Feet) 30 Able to Maintain Weight Bearing Status Yes During Gait Assistive Devices Assistive Device Gait Belt,Front Wheeled Walker Gait Deviations General Gait Pattern Antalgic,Decreased Stride Length,Decreased Feet Clearance,Flexed Trunk,Step-to Gait Factors Limiting Gait Function Factors Limiting Gait Function Decreased Activity Tolerance, Decreased Sensation,Decreased Strength,Difficulty Following Directions,Limited Range of Motion,Pain,Poor Balance,Poor Safety Awareness Comments Gait Comments Pt ambulated around the room with FWW SBA but was somewhat impulsive, requiring reminders to wait for the walker before preparing to stand and reminders to keep the walker with her during transfers. Stair Climbing Assessment Comments Stair Climbing Comments Not assessed. PT-Balance Assessment Sitting Balance and Reactions Static Sitting Balance Ability Normal Dynamic Sitting Balance Ability Normal Standing Balance and Reactions Static Standing Balance Ability Good Dynamic Standing Balance Ability Good Device Used FWW M5 PT-IP Objective Assessments Start: 01/09/20 13:30 Freq: NEEDED Status: Active Protocol: Document 01/09/20 16:45 AW (Rec: 01/09/20 17:01 AW [id number]) Orientation Orientation/Cognition Level of Alertness Alert Orientation Name,Day of Week,Place, Situation Language Function Ability No Deficits Noted Safety Awareness Understands Safety Issues, Decreased Safety Awareness Memory Description No Deficits Noted Gross Range of Motion Lower Extremity ROM Assessment Right Impaired Strength Lower Extremity Strength Assessment Right Impaired Coordination Assessment Gross Coordination Gross Coordination WNL Sensation Assessment Sensation Gross Sensation WNL Muscle Tone Muscle Tone WNL Yes M6 PT-IP Treatment Start: 01/09/20 13:30 Freq: NEEDED Status: Active Protocol: Document 01/09/20 16:45 AW (Rec: 01/09/20 17:01 AW [id number]) Physical Therapy Treatment Exercises Exercises Ankle Pumps,Quad Sets,Heel Slides,Passive Knee Extension Hang Education Education Provided Precautions,Weight Bearing Status,Post-Op Packet,Safety Other Treatments Other Treatment Performed Provided education on role of PT, plan of care, weightbearing status, and safe use of FWW. M7 PT-IP Assessment and Plan Start: 01/09/20 13:30 Freq: NEEDED Status: Active Protocol: Document 01/09/20 16:45 AW (Rec: 01/09/20 17:01 AW [id number]) PT Summary Assessment and Plan Potential Rehabilitation Potential Good Status of Condition at Evaluation Evolving Summary Impairments Pain,ROM,Strength,Balance,Bed Mobility,Transfers,Gait, Activity Tolerance Assessment Summary Nila is a 54 yo woman seen for PT evaluation on POD0 following R TKA. She had a L NEMO iwth posterior approach in July 2019. At baseline, pt is modified independent with use of SPC or FWW. On evaluation, she required SBA for all mobility and cues to slow down and keep the walker with her during transfers. PT anticipates this pt will be safe to discharge home with family assist once medically cleared. Pt does still need to set up outpatient PT evaluation. Goals Bed Mobility Goal Standby Assistance Transfer Goal Independent,Standby Assistance ,Front Wheeled Walker Gait Goal Standby Assistance,Front Wheel Walker Gait Distance 200 Other Goals - up/down 12 steps with R rail ascending SBA Days to Meet Goals 2 Frequency of Treatment Frequency Of Treatment Twice a Day Treatment Plan Physical Therapy Treatment Plan Bed Mobility Training,Transfer Training,Gait Training, Therapeutic Exercise,Balance Retraining,Post Op Education, Discharge Planning,Hot or Cold Pack Recommendations To Nursing Amount of Assist Needed Standby Assistance,1 Person Assist Discharge Recommendations PT Discharge Recommendations Home with Assistance, Outpatient PT Transportation Needs at Discharge Private Vehicle
--- NOTE | 2020-01-09 17:26 | PC.NURSE ---
Addendum entered by Hanane Calderón R.N. 01/09/20 22:54: Med a second time w/oxy w/fair relief. Dsg CDI IVF continue as per orders. Stable post op course, Call light w/in reach, bed alarm on for pt safety. Pt calls appropriately for needs. Continue w/plan of care. Addendum entered by Hanane Calderón R.N. 01/09/20 17:27: Dsg to right knee CDI. IVF of LR infusing @ 100cc/hr via pump w/o incidence. Med w/ oxycodone w/fair relief. Call light w/in reach, pt calls appropriately for needs. Original Note: Pt sitting in chair, states discomfort in surgical knee and thigh. Lungs clear, SpO2 9+8% RTA
[2020-01-09] MEDS: ASPIRIN EC 81 MG TABLET PO (21:03)
[2020-01-09] MEDS: ACETAMINOPHEN 325 MG TABLET 650 MG PO (21:03)
[2020-01-09] MEDS: DOCUSATE 100 MG CAPSULE PO (21:03)
[2020-01-09] MEDS: CALCIUM CARBONATE 500 MG TAB 1000 MG PO (22:08)
[2020-01-10 00:05] VITALS: BP 99/59; PULSE 60; RESP 18; TEMP 36.7; O2SAT 97
--- NOTE | 2020-01-10 00:57 | PC.NURSE ---
Addendum entered by Che Collins R.N. 01/10/20 05:37: 0220 - BP 100/64 Original Note: Pt denies pain at this time. Hesitant to take any more pain medication due to low BP (see chart). Pt asymptomatic - will recheck BP at 0115. Dressing on R knee c/d/i. Neuros intact.
[2020-01-10] MEDS: IBUPROFEN 400 MG TABLET PO ×3 (01:18→08:08)
[2020-01-10 01:23] VITALS: BP 98/50; O2SAT 96
[2020-01-10 02:23] VITALS: BP 100/64
[2020-01-10 04:09] VITALS: BP 101/65; PULSE 52; RESP 18; TEMP 36.5; O2SAT 97
[2020-01-10 06:09] LABS: Hematocrit 30.2 % (36-46); Hemoglobin 10.2 g/dL (12.0-16.0)
[2020-01-10 07:35] VITALS: BP 120/61; PULSE 57; RESP 17; TEMP 36.8; O2SAT 98
--- NOTE | 2020-01-10 07:45 | PM.DS.1 ---
History of Present Illness History of Present Illness Date Patient Seen: 01/10/20 Time Patient Seen: 07:45 Chief complaint: OPB Narrative: The history and physical are contained in the chart in a previously completed note. Please refer to that note for this information. Discharge Providers Provider Discharge Date: 01/10/20 Primary care physician: ROBERTO Sanchez Consults: 01/09/20 06:00 Consult to Anesthesiology Routine Comment: Consulting Provider: Anesthesiologist Reason for consultation: Regional block for post operative pain control 01/09/20 13:13 Consult to Discharge Planning Routine Comment: Consult to Physical Therapy Evaluate & Treat Comment: Physician Instructions: postop TKA protocol Discharge provider: Ezra Laura MD Summary Hospital Course Discharge Diagnosis: 1. Right knee osteoarthritis 2. Post hemorrhagic anemia Hospital Course: The patient was admitted to the hospital and taken directly to the operating room on January 10, 2020. She underwent a right total knee replacement without difficulty. She was comfortable on postoperative day 1 and anxious to go home. Status at Discharge Cognitive/behavioral status at discharge: oriented Functional status at discharge: uses cane/walker Overall status at discharge: patient is progressing back to baseline Time Spent with Patient Time spent: Less than 30 minutes Exam Vital Signs (past 8 hours): - 01/10/20 00:05 01/10/20 01:23 01/10/20 02:23 Temperature 98.1 F Pulse Rate 60 Respiratory Rate 18 Blood Pressure 99/59 L 98/50 L 100/64 Pulse Oximetry 97 96 01/10/20 04:09 Temperature 97.7 F Pulse Rate 52 L Respiratory Rate 18 Blood Pressure 101/65 Pulse Oximetry 97 Oxygen Delivery Method Room Air Oxygen Flow Rate 0 Narrative Exam Narrative: Right knee wound is dressed with no drainage on the bandage. Calf is soft. Light touch and motion are intact in the right lower extremity. Objective Labs Result Diagrams: 01/10/20 05:55 Labs: Laboratory Results - last 24 hr 01/09/20 01/10/20 09:30 05:55 Hgb 10.2 L Hct 30.2 L COVID-19 PCR Negative Discharge Assessment & Plan Assessment and Plan Assessment: The patient is stable postoperative day 1 status post right total knee replacement. She has a mild, anticipated, post hemorrhagic anemia. Plan of Treatment: Patient will see physical therapy today. She is anxious to go home and the plan is for discharge later in the day. She will follow up my office in 10-14 days. She has been given a prescription for oxycodone and suggestions for use of ibuprofen and Tylenol as well as the use of aspirin for DVT prophylaxis. Discharge Plan Discharge Plan Patient Disposition: Home Discharge Med Rec/Prescriptions Prescriptions: New acetaminophen 325 mg Tablet 650 mg PO TID 30 Days Qty: 180 RF: 0 aspirin 81 mg Tablet,Delayed Release (Dr/Ec) 81 mg PO BID 42 Days Qty: 84 RF: 0 ibuprofen 400 mg Tablet 400 mg PO Q4HR 30 Days RF: 0 oxycodone 5 mg Tablet 5 mg PO Q4H PRN (Reason: Pain, Moderate (4-6)) Qty: 40 RF: 0 hydroxyzine pamoate 25 mg Capsule 25 mg PO Q6HR PRN (Reason: Nausea) Qty: 40 RF: 0 Discontinued ibuprofen [Motrin IB] 200 mg Capsule 400 - 600 mg PO Q6H PRN (Reason: Pain) RF: 0 acetaminophen [Tylenol] 325 mg capsule 650 mg PO Q4H PRN (Reason: pain) Qty: 30 RF: 0 Follow up/Referrals: Ezra Laura MD [Physician] - 2 Weeks Discharge Orders: Discharge (Order); Ordered 01/10/20 Ordered By: Ezra Laura Provider Discharge Instructions Diet: Diet as Tolerated and Regular Activity: You may bear weight as tolerated on your right leg. Cold/Heat Therapy: Apply ice for 15 minutes every hour to the right knee for pain control. Skin/Wound/Dressing Care Report to your healthcare provider any signs of infection, such as:: chills, fever, night sweats, increased pain, unusual drainage and unusual redness Dressing: Leave the dressing intact until postoperative follow-up. You may shower with the dressing in place. If the central strip of the dressing becomes saturated with either water or blood, please call the office to have it evaluated. Visit Report/Discharge Packet Instructions: DI for Knee Replacement Stand Alone Forms: Surgery Discharge Discharge Data Primary Care Provider: Millie Loco Attending Provider: Ezra Laura
[2020-01-10] MEDS: ASPIRIN EC 81 MG TABLET PO (08:08)
[2020-01-10] MEDS: OXYCODONE IR 10 MG TABLET PO ×2 (08:08→10:52)
--- NOTE | 2020-01-10 08:28 | CM.DANOTE ---
Patient is a 54 year old female who was admitted on 01/09/20 for RKA. Pt has [employer] for insurance and her PCP is Dr. Radha Loco. EMR was reviewed. Per Ortho MD, pt tolerated procedure well and stable for d/c later today. Per PT, recommending safe d/c home with Dtr assist and outpt PT and will do stairs and CG training later today prior to d/c home. Pt resides on [facility] alone and is independent with ADL's and typically uses a can for longer ambulation and FWW if needed. 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 Pt denies any hx of HH or SNF and preference is home later today and does not anticipate any needs. Plan: SW to follow for likely pt d/c this afternoon via Dtr POV after further PT this morning and to have outpt PT after discharge. MILO Vieira Discharge Planning/Care Management CM Discharge Assessment Start: 01/10/20 08:27 Freq: Status: Active Protocol: Document 01/10/20 08:27 BF (Rec: 01/10/20 08:28 BF [id number]) Discharge Planning Assessment Assigned Manager Small Business MILO Michele Advance Directives? No Advance Directives on File No History Provided By Patient,Medical Record Has Patient been admitted in last 30 No days? Prior Living Arrangements House Household Members none Type of transporation used prior to Drives own vehicle admit Independent with ADL's Yes Is patient alert and oriented? Yes Caregiver for Another No Community Services used prior to Physical Therapy admission: DME Already Rented / Owned FWW / Walker,Cane Patient/Family Preference OP PT Therapy Barriers to Discharge No Comment Mod assist today, lives alone, wood burning fireplace Discharge Plan Home Transportation Arrangement Family Referrals Initiated None needed Review Status In Process Please Provide Date Initial DC 01/10/20 Assessment Was Performed Next Review Type Continued Stay Review Pre-Anesthesia Assessment Start: 01/04/20 07:37 Freq: Status: Active Protocol: Document 01/04/20 07:37 CAB (Rec: 01/04/20 08:31 CAB [id number]) Pre-Anesthesia Assessment Patient Information Reviewed Via Phone Assessment Assessment Completed With Patient Diagnostic Results BMP/CMP,CBC Comment Labs @ [facility] 12/28/19, COVID screen @ 01/06/20 Primary Care Provider Radha Loco Seen Specialist in Last 12 Months Yes Specialist Seen Orthopedist Primary Language Mosotho Preferred Language Mosotho Community Relations Representative Required No Height 160.02 cm Weight 78.018 kg Body Mass Index (BMI) 30.4 Hearing Ability Normal Visual Assist Glasses Dentition Type Teeth, Natural Present Barriers to Learning None Hx Anesthesia Reactions Yes: High spinal w/, severe PONV Hx Family Anesthesia Reaction No Hx Malignant Hyperthermia No Hx Blood Transfusions No Anesthesia Review Requested No alcohol intake current alcohol intake frequency holidays/special occasions only Smoking Status Never smoker Substance Use Type does not use Pain Present Pain Reported Musculoskeletal Symptoms Abnormal Gait,Back Pain, Difficulty Walking,Joint Pain, Limited Range of Motion,Neck Pain,Radiating Pain into Limb History of Falling (Recent or History of Yes ) Patient is completely paralyzed or No completely immobile Prosthesis or Orthotic Device Cane,Front Wheel Walker Mental Status Oriented to own ability Is patient on oxygen? No Does patient have CULP/SOB No Hx Sleep Apnea No CPAP/BIPAP use not prescribed Currently Taking a Beta Porter No Can You Climb a Flight of Stairs Without Yes SOB Hx Chest Pain No Hx SOB No Hx Syncope or Dizziness No Anti-Coagulant Therapy No Has a Scraper Operator No Cardiac Testing No Hx Pacemaker/ICD No Pacemaker Rep Required? No Cardiac Clearance Received Not Applicable Diet Type At Home Regular dysphagia No Urinary Catheter Present No Hx Urinary Self Catheterization No Diabetes No Patient No Lactating No Hx Drug Resistant Organism No Presence of External or Internal Medical Yes: Left hip prosthesis Devices Have you had any close contact with No someone diagnosed with COVID-19? Marital Status Single Lives With none Prior Living Arrangements House Number of Floors (Floors) Two Floors Support System Child/Children Does the Patient Have Assistance After Yes: Daughter will stay w/pt Surgery to assist w/care Patient Discharge Plan Description Return Home,[facility] Facility/Rehab Comment Pt not advised on length of stay per surgeon Feels Safe in Current Environment Yes Been Physically Hurt or Threatened By a No Person in Current Environment Do you have thoughts of harming yourself None or others? Are you currently considering suicide? No Do you have a plan to hurt yourself or No Plan others? Do You Have Any Spiritual Beliefs That No May Affect Your HC Choices? Do You Have Any Cultural Practices That No May Affect Your HC Choices? Comment [place] Who Can We Speak to About Patient's Care Family, friends Identifying Code for Release of Patient Declines to issue Information Health Care Proxy/Next of Kin Maria T (daughter) Health Care Proxy Emergency Contact Name Maria T (daughter) Emergency Contact Advance Directives? No Power of Invasive Physician No PAC Instructions Durable medical equipment, Medications to take/avoid, Nasal antibiotic,No ETOH/ petroleum product on skin DOS, NPO,Pre-surgical wash,Sturdy shoes/comfortable clothes,Do not bring valuables and remove jewelry
--- NOTE | 2020-01-10 10:14 | PT.IPTN ---
Current Diagnoses Unilateral primary osteoarthritis, right knee (01/09/20) Surgery Performed Operation Date: 01/09/20 10:45 Actual Procedures p Total Knee Arthroplasty(Right) - Ezra Laura MD Physical Therapy Treatment Note M2 PT-IP Current Condition Start: 01/09/20 13:30 Freq: NEEDED Status: Active Protocol: Document 01/09/20 16:45 AW (Rec: 01/09/20 17:01 AW [id number]) Physical Therapy Current Condition Current Condition Evaluation Date 01/09/20 Treatment Diagnosis R TKA; difficulty in walking Onset Date 01/09/20 Weight Bearing Status Weight Bearing Status Weight Bear as Tolerated M3 PT-IP Subjective Start: 01/09/20 13:30 Freq: NEEDED Status: Active Protocol: Document 01/10/20 10:00 AW (Rec: 01/10/20 10:13 AW [email or web address]) Subjective Physical Therapy Visit Type Type Treatment Note Visit Start Time 09:12 Visit Stop Time 09:43 Total Visit Minutes 31 Physical Therapy Visit Comments Patient Comments Pt is willing to participate with PT Therapy Pain Assessment Pain When Pain Assessed During Mobility Pain Present Pain Present Pain Reported Location right thigh/knee Intensity 4 Scale Used Numeric (0 - 10) Pain Management Techniques Apply Cold,Re-positioning, Timing of Activity with Medications M4 PT-IP Mobility and Gait Start: 01/09/20 13:30 Freq: NEEDED Status: Active Protocol: Document 01/10/20 10:00 AW (Rec: 01/10/20 10:13 AW [email or web address]) PT-Transfer Assessment Sit to and From Stand Sit to and from Stand Standby Assistance,Use of Upper Extremities Equipment Transfer Assistive Device Gait Belt,Front Wheeled Walker Transfers Transfer Destination Bed,Toilet Transfer Technique pt ambulated with FWW Transfer Ability Level of Assist Standby Assistance Comments Mobility Comments Pt was sitting up in the chair upon PT arrival. She lorna from the chair SBA and used the FWW for gait training and stair training in the halls before returning to the room. She transferred to and from the toilet with FWW and right- sided grab bar SBA and then transferred to the bed using her LLE to elevate the RLE to the bed SBA. Pt was positioned in the bed with call light and all needs within reach, bed alarm armed for safety. PT noticed the wheels on the pt' s FWW were on the inside of the frame. PT attempted to reverse the wheels for increased IONA, but was unable to adjust the height appropriately due to a piece of hardware in the tube which could not be removed without pliers. PT did not find pliers in the office. Pt stated she would rather have her walker set one notch higher with the wheels on the outside for now and that she could fix the walker to reduce the height at home. Gait Assessment Gait Gait Assistance Required: Standby Assistance Distance (Feet) 220 Able to Maintain Weight Bearing Status Yes During Gait Assistive Devices Assistive Device Gait Belt,Front Wheeled Walker Gait Deviations General Gait Pattern Antalgic,Decreased Stride Length,Decreased Feet Clearance,Flexed Trunk,Step-to Gait Factors Limiting Gait Function Factors Limiting Gait Function Decreased Activity Tolerance, Decreased Sensation,Decreased Strength,Difficulty Following Directions,Limited Range of Motion,Pain,Poor Balance,Poor Safety Awareness Comments Gait Comments Pt did not need cues for safety this session, ambulating SBA with FWW. Pt responded well to cues for increased RLE stance time and scapular retraction for posture. Stair Climbing Assessment Evaluation Level of Assist On Stairs Contact Guard Assistance Devices Stair Climbing Assistive Devices Straight Cane,Right Railing Technique/Endurance Stair Climbing Direction Ascend and Descend Stair Climbing Technique Step to Step Number of Steps Climbed 3 Stair Climbing Set # Repetitions (reps) 2 Comments Stair Climbing Comments Pt was able to appropriately sequence stair climbing with right rail and SPC held in opposite hand. Pt states she only needs to go up five stairs when she goes home. She does not plan to go all the way upstairs to the shower until feeling more confident on stairs. PT-Balance Assessment Sitting Balance and Reactions Static Sitting Balance Ability Normal Dynamic Sitting Balance Ability Normal Standing Balance and Reactions Static Standing Balance Ability Good Dynamic Standing Balance Ability Good Device Used FWW M5 PT-IP Objective Assessments Start: 01/09/20 13:30 Freq: NEEDED Status: Active Protocol: Document 01/09/20 16:45 AW (Rec: 01/09/20 17:01 AW [id number]) Orientation Orientation/Cognition Level of Alertness Alert Orientation Name,Day of Week,Place, Situation Language Function Ability No Deficits Noted Safety Awareness Understands Safety Issues, Decreased Safety Awareness Memory Description No Deficits Noted Gross Range of Motion Lower Extremity ROM Assessment Right Impaired Strength Lower Extremity Strength Assessment Right Impaired Coordination Assessment Gross Coordination Gross Coordination WNL Sensation Assessment Sensation Gross Sensation WNL Muscle Tone Muscle Tone WNL Yes M6 PT-IP Treatment Start: 01/09/20 13:30 Freq: NEEDED Status: Active Protocol: Document 01/10/20 10:00 AW (Rec: 01/10/20 10:13 AW [email or web address]) Physical Therapy Treatment Exercises Exercises Ankle Pumps,Quad Sets,Seated Knee Flexion/Extension Knee ROM Measurement 10-80 Education Education Provided Weight Bearing Status,Safety M7 PT-IP Assessment and Plan Start: 01/09/20 13:30 Freq: NEEDED Status: Active Protocol: Document 01/10/20 10:00 AW (Rec: 01/10/20 10:13 AW [email or web address]) PT Summary Assessment and Plan Potential Rehabilitation Potential Good Status of Condition at Evaluation Stable Summary Impairments Pain,ROM,Strength,Balance,Bed Mobility,Transfers,Gait, Activity Tolerance Progress Towards Goals Progressing Toward Goals Assessment Summary Nila was able to progress her gait distance and to demonstrate safe stair management this session. She does not have OP PT set up yet and was tasked by this PT with calling today for eval appointment. Pt has no further acute PT needs and is safe to discharge to home environment with her daughter providing assist. Goals Bed Mobility Goal Standby Assistance Transfer Goal Independent,Standby Assistance ,Front Wheeled Walker Gait Goal Standby Assistance,Front Wheel Walker Gait Distance 200 Other Goals - up/down 5 steps with R rail ascending SBA Days to Meet Goals 2 Frequency of Treatment Frequency Of Treatment Discharge Recommendations To Nursing Amount of Assist Needed Standby Assistance Discharge Recommendations PT Discharge Recommendations Home with Assistance, Outpatient PT Equipment Needed for Home Before Pts daugther got FWW and quad Discharge cane from [facility].
[2020-01-10] MEDS: hydrOXYzine pamoate 25 MG CAPSULE PO (10:15)
[2020-01-10 11:09] VITALS: PULSE 92; RESP 19; TEMP 36.8; O2SAT 99
--- NOTE | 2020-01-10 13:06 | PC.NURSE ---
Discharge note: Discharge instructions given to patient and daughter, discussed importance of F/U with Dr. ARCOS in 2 weeks, new medication, and dressing care. Verbalized understanding of instructions. Home via private vehicle with daughter.
== END 2020-01-10 13:00 | disposition home or self-care (01) ==
LOC: OR 09:00 → AC 09:01
PROVIDERS: PCP Nurse Practitioner Family; Referring Provider Orthopaedic Surgery; Visit Provider Orthopaedic Surgery
PROC: 0SRC0JZ Replacement of Right Knee Joint with Synthetic Substitute, Open Approach (ICD-10-PCS; CPT 27447; principal; 2020-01-09 10:45)
DX: M17.11 Unilateral primary osteoarthritis, right knee (principal)
CPT/HCPCS: 27447; 36415; 73560; 85014; 85018; 87635; 97110; 97116; 97161; C1776; C9290; J0690; J1100; J1170; J2250; J2270; J2405; J2704; J3010

== ENCOUNTER → 2020-03-05 10:17 | Outpatient (CLI) | payer OTHER, SELFPAY ==
[2020-01-09 17:20] VITALS: BMI 30.4
[2020-03-06 07:37] LABS: COVID19 Sendout Not Detected (Not Detect)
== END ==
PROVIDERS: PCP Nurse Practitioner Family; Visit Provider Physician Assistant
DX: Z11.59 Encounter for screening for other viral diseases (principal); R05 Cough
CPT/HCPCS: 87635

== ENCOUNTER → 2020-03-05 10:50 | Outpatient (CLI) | payer OTHER, SELFPAY ==
[2020-01-09 17:20] VITALS: BMI 30.4
--- NOTE | 2020-03-05 10:52 | DI.RAD.S_ITS ---
PROCEDURE: XR CHEST 2V INDICATIONS: cough, brown sputum, upper back ache, r/o pneumonia TECHNIQUE: 2 views of the chest were acquired. COMPARISON: None. FINDINGS: Surgical changes and devices: None. Lungs and pleura: Lungs are clear. No pleural effusions or pneumothorax. Mediastinum: Mediastinal contours are normal. Heart size is normal. Bones and chest wall: No suspicious bony abnormalities. Soft tissues appear unremarkable. IMPRESSION: No acute process. Dictated by: Ariane Smiley M.D. on 03/05/2020 at 11:38 Approved by: Ariane Smiley M.D. on 03/05/2020 at 11:39
[2020-03-05 11:42] LABS: Add Manual Diff / Slide Review NO; Basophils Absolute Auto 0 /uL (0-100); Basophils Percent Auto 0.7 % (0-2); Eosinophils Absolute Auto 100 /uL (0-450); Eosinophils Percent Auto 1.7 % (2-4); Hematocrit 39.4 % (36-46); Hemoglobin 13.1 g/dL (12.0-16.0); Lymphocytes Absolute Auto 2100 /uL (1100-4500); Lymphocytes Percent Auto 33.8 % (25-40); Mean Corpuscular HGB Conc 33.2 % (30-36); Mean Corpuscular Hemoglobin 26.7 PG (26-34); Mean Corpuscular Volume 80.3 fL (80-100); Monocytes Absolute Auto 400 /uL (0-900); Monocytes Percent Auto 6.5 % (3-14); Neutrophils Absolute Auto 3600 /uL (1500-7000); Neutrophils Percent Auto 57.3 % (50-75); Platelet Count 268 X10^3/uL (150-400); Red Blood Cell Count 4.91 X10^6/uL (4.0-5.2); Red Cell Distribution Width 14.6 % (11.6-14.8); White Blood Cell Count 6.3 X10^3/uL (4.5-11.0)
[2020-03-05 11:55] LABS: Creatine Kinase 69 U/L (30-135)
[2020-03-05 11:56] LABS: BUN Creatinine Ratio 19.4 (6-22); Blood Urea Nitrogen 14 mg/dL (7-17); Calcium 10.3 mg/dL (8.4-10.2); Carbon Dioxide 26 mmol/L (22-32); Chloride 105 mmol/L (98-107); Cholesterol 246 mg/dL (140-199); Estimated Glomerular Filt Rate > 60.0 mL/min (>60); Glucose 101 mg/dL (70-100); HDL Cholesterol 49 mg/dL (40-60); HEMOLYSIS < 15 (0-50); LDL Cholesterol Calculated 172 mg/dL (<100); Potassium 4.2 mmol/L (3.4-5.1); Sodium 140 mmol/L (137-145); Triglycerides 127 mg/dL (35-150)
[2020-03-05 12:07] LABS: NT-proBNP (BNP-Adult 18+) 55 pg/mL (<125); Troponin I < 0.012 ng/mL (0.01-0.034)
[2020-03-05 12:10] LABS: Procalcitonin < 0.05 ng/mL (<0.5)
== END ==
PROVIDERS: PCP Nurse Practitioner Family; Referring Provider Physician Assistant; Visit Provider Nurse Practitioner Family
DX: Z11.59 Encounter for screening for other viral diseases (principal); R05 Cough; M54.6 Pain in thoracic spine; R09.3 Abnormal sputum; E78.2 Mixed hyperlipidemia; R73.9 Hyperglycemia, unspecified
CPT/HCPCS: 36415; 71046; 80048; 80061; 82550; 83880; 84145; 84484; 85025; 87635

== ENCOUNTER → 2020-03-08 11:43 | Outpatient (CLI) | payer OTHER, SELFPAY ==
[2020-01-09 17:20] VITALS: BMI 30.4
--- NOTE | 2020-03-08 12:18 | DI.CT.S_ITS ---
PROCEDURE: CT CHEST W CON INDICATIONS: cough, brown sputum, recent surgery, PE vs pneumonia TECHNIQUE: After the administration of intravenous contrast, 5 mm thick sections acquired from the pulmonary apices to the posterior costophrenic angles. 1 mm axial lung, 5 mm thick coronal and sagittal reformats and 7 mm axial MIP were acquired. For radiation dose reduction, the following was used: automated exposure control, adjustment of mA and/or kV according to patient size. COMPARISON: [facility], CR, XR CHEST 2V, 03/05/2020, 11:13. FINDINGS: Image quality: Excellent. Lungs and pleura: Presumed dependent atelectasis can be seen within the right lower lobe. No pleural effusions or pneumothorax. Central and peripheral airways are patent and normal in caliber. Mediastinum: Heart size is normal. No pericardial effusion. No mediastinal or hilar adenopathy by size criteria. Thoracic aorta and central pulmonary arteries are normal in size. To the limits of this study that is optimized for evaluation of pulmonary embolism, no findings of aortic dissection or aneurysm are seen. Esophagus is normal in caliber. There is a small hiatal hernia. Bones and chest wall: No suspicious bony lesions. No vertebral body compression fractures. No axillary or supraclavicular adenopathy by size criteria. Thyroid gland demonstrates no significant abnormality. Abdomen: Incidental note is made of an accessory splenule along the hilum of the primary spleen. Incidental note is made of a retroaortic left renal vein. The visualized portions of the upper abdominal structures are otherwise unremarkable for imaging technique. IMPRESSION: Negative for pulmonary embolism. Presumed right lower lobe atelectasis. Otherwise clear lungs. Incidental note is made of: Small hiatal hernia Accessory splenule Retroaortic left renal vein Dictated by: Daryl Dean M.D. on 03/08/2020 at 11:26 Approved by: Daryl Dean M.D. on 03/08/2020 at 11:29
== END ==
PROVIDERS: PCP Nurse Practitioner Family; Referring Provider Physician Assistant; Visit Provider Physician Assistant
DX: R05 Cough (principal); R06.02 Shortness of breath; R09.3 Abnormal sputum; K44.9 Diaphragmatic hernia without obstruction or gangrene; Q89.09 Congenital malformations of spleen; Z98.890 Other specified postprocedural states
CPT/HCPCS: 71260; Q9967

== ENCOUNTER → 2020-05-10 16:57 | Outpatient (CLI) | payer OTHER, SELFPAY ==
[2020-01-09 17:20] VITALS: BMI 30.4
--- NOTE | 2020-05-10 17:00 | DI.MG.S_ITS ---
BILATERAL DIGITAL SCREENING MAMMOGRAM 3D/2D WITH CAD: 05/10/2020 CLINICAL: Routine screening. Family history of breast cancer. Comparison is made to exams dated: 12/11/2017 mammogram, 03/21/2016 mammogram, and 03/02/2012 mammogram - [facility]. There are scattered fibroglandular elements in both breasts. Current study was also evaluated with a Computer Aided Detection (CAD) system. No significant masses, calcifications, or other findings are seen in either breast. There has been no significant interval change. IMPRESSION: NEGATIVE There is no mammographic evidence of malignancy. A 1 year screening mammogram is recommended. This exam was interpreted at Station ID: [id number]. NOTE: For mammograms, a report in lay terms will be sent to the patient. Approximately 15% of breast malignancies will not be visualized mammographically. In the management of a palpable breast mass, a negative mammogram must not discourage biopsy of a clinically suspicious lesion. Electronically Signed By: Esequiel gonzales/tiera:05/11/2020 08:06:19 letter sent: Normal Exam ACR BI-RADS Category 1: Negative [id number]
== END ==
PROVIDERS: PCP Nurse Practitioner Family; Referring Provider Nurse Practitioner Family; Visit Provider Nurse Practitioner Family
DX: Z12.31 Encounter for screening mammogram for malignant neoplasm of breast (principal); Z80.3 Family history of malignant neoplasm of breast
CPT/HCPCS: 77063; 77067

== ENCOUNTER → 2020-05-30 16:00 | Outpatient (CLI) | payer OTHER, SELFPAY ==
[2020-01-09 17:20] VITALS: BMI 30.4
[2020-05-30 17:40] LABS: Vitamin D 25 Hydroxy (D3) 31.6 ng/mL (30.0-100.0)
[2020-05-30 17:53] LABS: TSH w/ Reflex to FT4 2.18 uIU/mL (0.47-4.68)
[2020-05-30 17:57] LABS: Estradiol, Total 16.6 pg/mL
== END ==
PROVIDERS: PCP Registered Nurse Diabetes Educator; Referring Provider Registered Nurse Diabetes Educator; Visit Provider Registered Nurse Diabetes Educator
DX: F32.9 Major depressive disorder, single episode, unspecified (principal); N95.1 Menopausal and female climacteric states; R45.86 Emotional lability; R53.83 Other fatigue; Z86.39 Personal history of other endocrine, nutritional and metabolic disease
CPT/HCPCS: 36415; 82306; 82670; 83001; 83002; 84443

== ENCOUNTER → 2020-10-08 14:39 | Outpatient (CLI) | payer OTHER, SELFPAY ==
[2020-01-09 17:20] VITALS: BMI 30.4
--- NOTE | 2020-10-08 14:40 | DI.ECHO.S_ITS ---
[facility]---------[facility] +---------+ : : [address] : : : : [id number] : : : : Phone: [phone]+ Echocardiogram Report + + :Name: ARIAN SEPULVEDA Study Date: 10/08/2020 Height: 63 in : :[facility] ReadingLocation: Weight: 170 lb : : Gender: Female BSA: 1.8 m2 : :: 1965 Age: 55 yrs BP: 168/97 mmHg: :Reason For Study: Murmur : :Ordering Physician: VALERIA, : :SOPHIA Performed By: Chava Rucker : :Referring: SOPHIA SHAW : + + Interpretation Summary Normal left ventricle size with ejection fraction 60-65%. No valvular abnormality. The ascending aorta is mildly enlarged. Procedure: A two-dimensional transthoracic echocardiogram with color flow and Doppler was performed. The study quality was technically adequate. There is no prior echocardiogram noted for this patient. The patient was in sinus rhythm with heart rates between 49-65 bpm during the exam. Left Ventricle: The left ventricle is normal in size and wall thickness. The ejection fraction is estimated to be 60-65%. There are no focal wall motion abnormalities. Diastolic parameters suggest probable normal left ventricular diastolic function and normal filling pressures. Right Ventricle: The right ventricle is normal in size and function. Atria: Both atria are normal in size. There is no Doppler evidence for an interatrial shunt. Mitral Valve: The mitral valve is normal in structure and function. There is trace mitral regurgitation. Aortic Valve: The aortic valve is normal in structure and function. No aortic regurgitation is present. Tricuspid Valve: The tricuspid valve is normal in structure and function. There is trace tricuspid regurgitation. The right ventricular systolic pressure is estimated to be at least 20 mmHg based on an estimated right atrial pressure of 3 mm Hg. Pulmonic Valve: The pulmonic valve is not well visualized. There is a trace or physiologic amount of pulmonic regurgitation. Great Vessels: The aortic root is normal size. The ascending aorta is mildly enlarged. The IVC is of normal diameter and collapses greater than 50% with a sniff. This suggests a low right atrial pressure of 3 mm Hg. Pericardium/ Pleura There is no pericardial effusion. There is no pleural effusion. MMode/2D Measurements & Calculations LVIDd: 4.8 cm LVOT diam: 1.9 cm LVIDs: 3.0 cm Ao root diam: 3.3 cm FS: 37.1 % asc Aorta Diam: 3.8 cm IVSd: 0.89 cm LVPWd: 0.69 cm LV chappell. diameter/BSA (cm/m^2): 2.6 LV sys. diameter/BSA (cm/m^2): 1.7 LA A2 area: 16.4 cm2 RA area: 12.4 cm2 LA A4 area: 14.3 cm2 LA length (vol): 4.5 cm LA vol: 44.5 ml LA vol index: 24.7 ml/m2 RVD1 (basal): 2.6 cm TAPSE: 2.2 cm Doppler Measurements & Calculations Ao V2 max: 165.4 cm/sec LVOT Max Austin: 122.1 cm/sec Ao V2 mean: 103.3 cm/sec LV V1 max P.0 mmHg Ao max P.9 mmHg LV V1 VTI: 26.6 cm Ao mean P.1 mmHg ISAIAS(I,D): 2.2 cm2 Ao V2 VTI: 32.4 cm ISAIAS(V,D): 2.0 cm2 sev ratio: 0.82 ISAIAS indexed to BSA (cm^2/m^2): 1.2 MV E max austin: 123.9 cm/sec TR max austin: 208.6 cm/sec MV A max austin: 74.5 cm/sec TR max P.4 mmHg MV E/A: 1.7 PA V2 max: 101.0 cm/sec Med Peak E' Austin: 10.4 cm/sec PA V2 mean: 82.4 cm/sec E/E' med: 11.9 PA mean P.8 mmHg Lat Peak E' Austin: 14.4 cm/sec PA pr(Accel): 15.7 mmHg E/E' lat: 8.6 E/e' average: 10.2 MV dec time: 0.24 sec SV(LVOT): 72.2 ml Electronically signed by: Nicolás Brandon on Reading Physician:10/08/2020 05:56 PM
== END ==
PROVIDERS: PCP Registered Nurse Diabetes Educator; Referring Provider Registered Nurse Diabetes Educator; Visit Provider Registered Nurse Diabetes Educator
DX: I77.89 Other specified disorders of arteries and arterioles (principal); R01.1 Cardiac murmur, unspecified
CPT/HCPCS: 93306

== ENCOUNTER → 2021-02-13 15:53 | Outpatient (CLI) | payer OTHER, SELFPAY ==
[2020-01-09 17:20] VITALS: BMI 30.4
--- NOTE | 2021-02-13 15:55 | DI.RAD.S_ITS ---
PROCEDURE: XR ANKLE LT MIN 3V INDICATIONS: left ankle pain chronic TECHNIQUE: 3 views of the ankle were acquired. COMPARISON: None. FINDINGS: No acute fractures or dislocations. A corticated ossification inferior to the medial malleolus is consistent with remote trauma. Degenerative change at the tibiotalar joint. Ankle mortise is normally aligned. No suspicious bony lesions. Soft tissues: No tibiotalar joint effusion. Achilles tendon appears normal. 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 No evidence acute bony abnormality of the left ankle. If clinical suspicion and/or symptoms persist, further assessment with repeat plain films, or advanced imaging (e.g., CT, MRI, or bone scan) may be helpful for further assessment. Dictated by: Nixon Guadarrama M.D. on 02/13/2021 at 17:24 Approved by: Nixon Guadarrama M.D. on 02/13/2021 at 17:25
== END ==
PROVIDERS: PCP Registered Nurse Diabetes Educator; Referring Provider Family Medicine; Visit Provider Family Medicine
DX: M25.572 Pain in left ankle and joints of left foot (principal); M76.60 Achilles tendinitis, unspecified leg; G89.29 Other chronic pain
CPT/HCPCS: 73610

== ENCOUNTER → 2021-03-18 15:05 | Outpatient (CLI) | payer OTHER, SELFPAY ==
[2020-01-09 17:20] VITALS: BMI 30.4
[2021-03-18 15:58] LABS: Add Manual Diff / Slide Review NO; Basophils Absolute Auto 100 /uL (0-100); Basophils Percent Auto 0.8 % (0-2); Eosinophils Absolute Auto 200 /uL (0-450); Eosinophils Percent Auto 2.5 % (2-4); Hematocrit 34.4 % (36-46); Hemoglobin 11.2 g/dL (12.0-16.0); Lymphocytes Absolute Auto 2300 /uL (1100-4500); Lymphocytes Percent Auto 33.4 % (25-40); Mean Corpuscular HGB Conc 32.5 % (30-36); Mean Corpuscular Hemoglobin 24.7 PG (26-34); Mean Corpuscular Volume 75.9 fL (80-100); Monocytes Absolute Auto 400 /uL (0-900); Neutrophils Absolute Auto 4000 /uL (1500-7000); Neutrophils Percent Auto 57.3 % (50-75); Platelet Count 274 X10^3/uL (150-400); Red Blood Cell Count 4.53 X10^6/uL (4.0-5.2); Red Cell Distribution Width 15.7 % (11.6-14.8); White Blood Cell Count 6.9 X10^3/uL (4.5-11.0)
[2021-03-18 16:16] LABS: Blood Urea Nitrogen 16 mg/dL (7-17); Calcium 9.5 mg/dL (8.4-10.2); Carbon Dioxide 27 mmol/L (22-32); Chloride 105 mmol/L (98-107); Estimated Glomerular Filt Rate > 60.0 mL/min (>60); Glucose 112 mg/dL (70-100); HEMOLYSIS < 15 (0-50); Potassium 3.7 mmol/L (3.4-5.1); Sodium 142 mmol/L (137-145)
[2021-03-18 16:21] LABS: Hemoglobin A1C% w Est Avg Glu 5.6 % (4.0-6.0)
== END ==
PROVIDERS: PCP Registered Nurse Diabetes Educator; Referring Provider Orthopaedic Surgery; Visit Provider Orthopaedic Surgery
DX: Z01.818 Encounter for other preprocedural examination (principal); M25.562 Pain in left knee; R73.9 Hyperglycemia, unspecified; Z01.812 Encounter for preprocedural laboratory examination
CPT/HCPCS: 36415; 80048; 83036; 85025; 93005; 93010

== ENCOUNTER → 2021-03-29 11:48 | Outpatient (CLI) | payer OTHER, SELFPAY ==
[2020-01-09 17:20] VITALS: BMI 30.4
[2021-03-29 17:51] LABS: COVID-19 CEPHEID PCR (VTM/NP) Negative (Negative)
== END ==
PROVIDERS: PCP Registered Nurse Diabetes Educator; Visit Provider Nurse Practitioner
DX: Z20.822 Contact with and (suspected) exposure to COVID-19 (principal)
CPT/HCPCS: U0003

== ENCOUNTER 2021-04-01 10:50 | Observation (INO) | payer OTHER, SELFPAY ==
[2020-01-09 17:20] VITALS: BMI 30.4
[2021-03-25 15:04] VITALS: BMI 29.2
[2021-04-01] VITALS (10 sets, daily range): BP systolic 88–166; BP diastolic 41–86; PULSE 53–65; RESP 9–25; TEMP 35.9–36.6; O2SAT 95–100; BMI 29.2
--- NOTE | 2021-04-01 06:10 | DI.RAD.S_ITS ---
PROCEDURE: XR KNEE LT 1TO2V INDICATIONS: post op total knee TECHNIQUE: 2 view(s) of the knee acquired. COMPARISON: None. FINDINGS: Bones: Patient is status post knee joint arthroplasty. Hardware components are in expected positions. Visualized bony structures are intact. Soft tissues: Overlying postoperative changes are noted. IMPRESSION: Expected immediate postoperative appearance of left TKA. Dictated by: Amish King RRA Interpreted: Annamarie Jeffries MD on 04/01/2021 at 13:48 Transcribed by: KERWIN on 04/01/2021 at 13:48 Approved by: Annamarie Jeffries M.D. on 04/01/2021 at 17:35
[2021-04-01] MEDS: CELECOXIB 200 MG CAPSULE PO (11:14)
[2021-04-01] MEDS: PREGABALIN 75 MG CAPSULE PO (11:14)
[2021-04-01] MEDS: ACETAMINOPHEN 325 MG TABLET 975 MG PO (11:14)
--- NOTE | 2021-04-01 11:21 | PM.PREOP ---
Pre-operative Note COVID-19 COVID-19 status: Negative Result date/Date tested (Pos, Neg/Pending): 03/29/21 Interval Note History & Physical reviewed/Exam performed by Physician: Yes Changes to H&P: No
[2021-04-01] MEDS: LACTATED RINGERS 1,000 ML 42 ML IV ×2 (11:32→13:59)
[2021-04-01] MEDS: CEFAZOLIN 1 GM VIAL 2 GM IV (12:10)
[2021-04-01] MEDS: TRANEXAMIC ACID 1,000 MG VIAL 1000 MG INJ ×2 (12:11→13:23)
--- NOTE | 2021-04-01 12:25 | SUR.OPER ---
Supine on padded OR bed. Pillow under head, arms secured on padded armboards <90 degree abduction. Safety belt across torso. Non-operative leg secured with tape over blanket over lower leg. Operative leg secured in [place].
[2021-04-01] MEDS: BUPIVACAINE LIPOSOME 266 MG/20 ML VIAL INJ (12:30)
[2021-04-01] MEDS: BUPIVACAINE 0.25% (PF) 60 ML, EPINEPHrine 0.3 MG INJ (12:31)
[2021-04-01] MEDS: MORPHINE 4 MG/ML INJ INJ (12:32)
--- NOTE | 2021-04-01 13:46 | PM.OP.1 ---
Operative Date/Time/Diagnoses Date of procedure: 04/01/21 Time of procedure: 13:47 Pre-op diagnosis: Left knee inflammatory arthritis Post-op diagnosis: same Procedure & Clinicians Procedure: Left total knee replacement Same procedure as scheduled: Yes Indications: The patient has had progressively worsening left knee pain with radiographic changes consistent with arthritis. Non-operative management has failed and the patient has requested total knee replacement. The risks, benefits and alternatives to surgery were discussed with the patient prior to proceeding. Risks discussed included, but were not limited to, failure to relieve pain, stiffness, infection, nerve damage, deep venous thrombosis, pulmonary embolism, stroke, coma, heart attack, permanent paralysis and , as well as the potential need for eventual revision of the prosthetic. Surgeon: Ezra Laura Criminal Justice Teacher: Nenita Ribeiro Click Yes if Unassisted: No Anesthesia Type: Spinal and Local Operative Notes Findings: Severe inflammatory arthritic change with a significant effusion and inflamed synovium. The arthritic change was worst in the medial compartment. Closure Type: primary Specimen(s): none sent Prosthetic devices, grafts, tissues, transplants, or devices: Implants used in this procedure were manufactured by the [employer] and [employer] and included the BCS II Journey total knee replacement with a size 4 left Oxinium femoral component, a size 3 left non porous tibial base plate, 9 mm cross-linked polyethylene insert and a 32 mm oval Hyacinth II patellar component. Applied: implant(s) Estimated Blood Loss (mL): 25 Blood products transfused: none Tourniquet time (min): 49 Procedure in detail: The patient was seen in the pre-operative area, where the left knee was identified as the operative site and this was marked with my initials. The patient received pre-operative antibiotics, and was taken to the operating room and placed on the operative table in the supine position. After satisfactory anesthesia, a other wood processing machine operator out was performed. The left leg was encircled with a tourniquet about the proximal thigh, and the leg was prepared from the toes to the tourniquet with ChloroPrep in the usual fashion and draped through sterile drapes. The leg was elevated and exsanguinated with Eschmark bandage and the tourniquet inflated to 250 mmHg pressure. The knee was approached through an approximately 18 cm incision centered over the patella and carried into the knee through a medial parapatellar arthrotomy. The anterior osteophytes and soft tissues were removed. The rotational landmarks of Burlington's line and the transepicondylar axis were marked on the femur with electrocautery, and intramedullary guide holes for the femur and tibia were created. The distal femoral cut was made in 6 degrees of valgus using the intramedullary guide at the +2 cut setting due to a flexion contracture. The proximal tibial cut was then made using the intramedullary guide, taking 9 mm of bone off the less involved side. The extension gap was checked and the rotation of the femoral component confirmed with the gap balancing blocks. The anterior, posterior and chamfer cuts were then made. The posterior osteophytes and soft tissues were then removed. The posterior capsule was injected with part of a mixture of 60 ml 0.25% Marcaine mixed with 20 ml Exparel and 4 mg of morphine for post-operative pain control. The remainder of this mixture was injected into the capsule and subcutaneous tissues during cement curing. The tibia was prepared with the rotation set by an extra medullary guide. Trial tibial and femoral components were then placed and the intercondylar notch cut through the femoral trial. Range of motion was 0-135 degrees, with good stability throughout the range. The patella was then cut to accommodate the patellar prosthetic. There was no need for a lateral release. The trials were then removed, and the femoral hole plugged with a bone plug. The bone was prepared with pulsatile lavage, and dried with a sponge. Cement was applied and the final prosthetics placed. Excess cement was removed during and after cement curing. After confirming there was no extruded cement posteriorly, the final tibial insert was placed. The knee was copiously irrigated and the tourniquet deflated. Hemostasis was obtained. The capsule was closed with interrupted # 2 polyester sutures. The subcutaneous layer was closed with 3-0 Vicryl, and the skin with a running 3-0 V-Lock suture and Dermabond. An Aquacel Ag dressing was applied and the patient was taken to recovery having tolerated the procedure well. Complications: none Post-operative Condition: stable Disposition: PACU Plan for aftercare: The patient will be maintained on a standard total knee replacement protocol with weight bearing as tolerated. The patient will receive aspirin and sequential compression devices for DVT prophylaxis. The patient will be discharged home when safe for the home environment.
[2021-04-01] MEDS: LACTATED RINGERS 1,000 ML 100 ML IV ×2 (14:50→22:15)
--- NOTE | 2021-04-01 14:52 | SUR.PHASEI ---
verbal report given to Chelo at 1432
[2021-04-01] MEDS: hydrOXYzine pamoate 25 MG CAPSULE PO (15:25)
[2021-04-01] MEDS: ACETAMINOPHEN 325 MG TABLET 650 MG PO ×2 (15:25→20:40)
[2021-04-01] MEDS: OXYCODONE IR 5 MG TABLET PO (15:25)
--- NOTE | 2021-04-01 16:40 | PT.IIE ---
Current Diagnoses Unilateral primary osteoarthritis, left knee (04/01/21) Surgery Performed Operation Date: 04/01/21 12:30 Actual Procedures p Total Knee Arthroplasty(Left) - Ezra Laura MD Surgical History (Last Updated 03/25/21 @ 15:05 by Toshia Ferraro RN) Status post delivery Medical History (Last Updated 02/13/21 @ 15:46 by Jay Casper MD) Achilles tendinitis Anxiety Carpal tunnel syndrome, bilateral Chronic pain of left ankle Cough Depression Depression Dyslipidemia Heartburn History of vitamin D deficiency HLD (hyperlipidemia) Lumbar foraminal stenosis (05/2019) Osteoarthritis Osteoarthritis of left knee Pneumonia Right knee pain (04/2019) Shortness of breath Systolic murmur Physical Therapy Inpatient Evaluation/Re-Eval M1 PT/OT-IP Prior Functional Status Start: 04/01/21 15:57 Freq: NEEDED Status: Active Protocol: Document 04/01/21 16:40 AW (Rec: 04/01/21 17:06 AW [id number]) Medical Review Prior Functional Status Medical History Reviewed Yes Communication Pt is an effective verbal communicator. Mobility and Gait Pt uses a SPC if she wakes up to go to the bathroom in the middle of the night but otherwise mobilizes independently without AD. She notes that her left knee and left ankle have been hurting recently. Ankle was x-rayed with no fracture found. Activities of Daily Living and IADL's Independent with all ADL and IADL needs. Pt drives. Prior Functional Level (Other details) Pt had L NEMO in July 2019, R TKA in January 2020 ( followed by LENKA). Social History Household Members none Living Arrangements House Number of Floors (Floors) Two Floors Number of Stairs To Enter/Railing? 2 steps without rail + 8 steps with R rail up to front door. Pt has arranged to stay on the entry level civil engineer when she returns home but will need to climb 12 steps with R rail when needing to take a shower. Pt plans to avoid showering for several days. Home Environment Standard Height Toilet,Walk in Shower Home Equipment Front Wheel Walker,Straight Cane,Hand Held Shower Employment Status Self-Employed Additional Social History Comment Pt lives alone on [address] [address] [facility]. She does housecleaning for a living. Her daughter, Maria T, will stay with her for 2 weeks to provide assist as she has done following other orthopedic surgeries. M2 PT-IP Current Condition Start: 04/01/21 15:57 Freq: NEEDED Status: Active Protocol: Document 04/01/21 16:40 AW (Rec: 04/01/21 17:06 AW [id number]) Physical Therapy Current Condition Current Condition Evaluation Date 04/01/21 Treatment Diagnosis L TKA; difficulty in walking Onset Date 04/01/21 M3 PT-IP Subjective Start: 04/01/21 15:57 Freq: NEEDED Status: Active Protocol: Document 04/01/21 16:40 AW (Rec: 04/01/21 17:06 AW [id number]) Subjective Physical Therapy Visit Type Type Initial Evaluation Visit Start Time 16:11 Visit Stop Time 16:40 Total Visit Minutes 29 Notes Pt's daughter was in the room but on a work phone call during this evaluation. Number of DINKEY ENGINE OPERATOR Visits 0 Physical Therapy Visit Comments Patient Comments Pt is tearful and states she doesn't understand why she is so emotional right now but would like to get up to the toilet. Patient Goals Return home with daughter assisting Therapy Pain Assessment Pain When Pain Assessed During Mobility Pain Present Pain Present Pain Reported Location left knee Intensity 6 Scale Used Numeric (0 - 10) Pain Management Techniques Apply Cold,Elevation,Re- positioning,Timing of Activity with Medications M4 PT-IP Mobility and Gait Start: 04/01/21 15:57 Freq: NEEDED Status: Active Protocol: Document 04/01/21 16:40 AW (Rec: 04/01/21 17:06 AW [id number]) PT-Bed Mobility Assessment Supine to Sit Supine to Sit Minimal Assistance PT-Transfer Assessment Sit to and From Stand Sit to and from Stand Contact Guard Assistance,Use of Upper Extremities Equipment Transfer Assistive Device Gait Belt,Front Wheeled Walker Orthotic/Prosthetic Devices or Brace: No Transfers Transfer Destination Chair,Toilet Transfer Technique pt ambulated with FWW Transfer Ability Level of Assist Standby Assistance,Contact Guard Assistance Comments Mobility Comments Pt was lying in bed as PT arrived. BP 143/86 HR 57 SpO2 100% RA. Pt completed supine to sit min A x 1 with PT providing support for the operative leg. She stood CGA and walked 12 feet to the toilet using FWW SBA. She transferred to and from the toilet SBA but needed cues to keep the walker with her during transitions. She ambulated with FWW SBA to the sink, again needing cues to keep the walker with her facing the sink. She ambulated around the room ~25 feet before transferring to the chair CGA. She was left with legs elevated, fresh ice packs applied, call light and tray table in reach. Gait Assessment Gait Gait Assistance Required: Standby Assistance Distance (Feet) 25 Able to Maintain Weight Bearing Status Yes During Gait Assistive Devices Assistive Device Gait Belt,Front Wheeled Walker Orthotic/Prosthetic Devices or Brace: No Gait Deviations General Gait Pattern Antalgic,Decreased Stride Length,Decreased Feet Clearance,Step-to Gait Factors Limiting Gait Function Factors Limiting Gait Function Decreased Sensation,Decreased Strength,Limited Range of Motion,Pain,Poor Safety Awareness Comments Gait Comments Pt ambulated safely with FWW but needed cues to maintain contact with the walker during transfers. Stair Climbing Assessment Comments Stair Climbing Comments Not assessed. PT-Balance Assessment Sitting Balance and Reactions Static Sitting Balance Ability Good Dynamic Sitting Balance Ability Good Standing Balance and Reactions Static Standing Balance Ability Good Dynamic Standing Balance Ability Fair Device Used FWW M5 PT-IP Objective Assessments Start: 04/01/21 15:57 Freq: NEEDED Status: Active Protocol: Document 04/01/21 16:40 AW (Rec: 04/01/21 17:06 AW [id number]) Orientation Orientation/Cognition Level of Alertness Alert Orientation Name,Day of Week,Place, Situation Language Function Ability No Deficits Noted Safety Awareness Decreased Safety Awareness Memory Description No Deficits Noted Gross Range of Motion Lower Extremity ROM Assessment Left Impaired Strength Lower Extremity Strength Assessment Left Impaired Comments Strength Comments RLE grossly 4+/5 Sensation Assessment Sensation Gross Sensation Right LE Impaired,Left LE Impaired Light Touch Impaired Sensation Description Numbness M6 PT-IP Treatment Start: 04/01/21 15:57 Freq: NEEDED Status: Active Protocol: Document 04/01/21 16:40 AW (Rec: 04/01/21 17:06 AW [id number]) Physical Therapy Treatment Exercises Exercises Ankle Pumps,Heel Slides,Seated Knee Flexion/Extension Education Education Provided Weight Bearing Status,Post-Op Packet,Safety Other Treatments Other Treatment Performed Educated pt on PT plan of care , weightbearing status, and safe use of FWW. M7 PT-IP Assessment and Plan Start: 04/01/21 15:57 Freq: NEEDED Status: Active Protocol: Document 04/01/21 16:40 AW (Rec: 04/01/21 17:06 AW [id number]) PT Summary Assessment and Plan Potential Rehabilitation Potential Good Status of Condition at Evaluation Evolving Summary Impairments Pain,ROM,Strength,Balance, Sensation,Bed Mobility, Transfers,Gait Assessment Summary Nila is a 56 yo woman seen for PT evaluation on POD0 following L TKA. She had L NEMO and R TKA in 2019. Her right knee did not progress as anticipated with ROM and she needed LENKA. Pt is independently mobile at baseline except for use of SPC for overnight trips to the bathroom. She denies falls in the past year. On assessment, pt required CGA to min assist with mobility using FWW as well as frequent cues to keep the walker with her during transfers. Her daughter (who has assisted following other surgeries) will stay with pt for two weeks at discharge. Following satisfactory stair training, pt will likely be safe to discharge home with assist and outpatient PT ( already scheduled). Goals Bed Mobility Goal Independent Transfer Goal Independent,Front Wheeled Walker Gait Goal Independent,Front Wheel Walker Gait Distance 200 Other Goals - up/down 2 steps without rail min assist + 8 steps with R rail ascending SBA Days to Meet Goals 2 Frequency of Treatment Frequency Of Treatment Twice a Day Treatment Plan Physical Therapy Treatment Plan Bed Mobility Training,Transfer Training,Gait Training, Therapeutic Exercise,Balance Retraining,Post Op Education, Discharge Planning,Hot or Cold Pack Other Recommendations and Next Treatment progress gait training with Focus FWW; stair training; involve daughter with stair training ( will be available after 929) Weight Bearing Status Weight Bearing Status Weight Bear as Tolerated Allowed Weight Bearing Amount (enter % WBAT LLE or #) (%) Recommendations To Nursing Amount of Assist Needed Standby Assistance,1 Person Assist Discharge Recommendations PT Discharge Recommendations Home with Assistance, Outpatient PT Equipment Needed for Home Before raised toilet seat Discharge Transportation Needs at Discharge Private Vehicle
[2021-04-01] MEDS: IBUPROFEN 400 MG TABLET PO (17:23)
[2021-04-01] MEDS: ONDANSETRON 4 MG/2 ML INJ IV ×2 (17:23→21:30)
[2021-04-01] MEDS: ASPIRIN EC 81 MG TABLET PO (20:39)
[2021-04-01] MEDS: DOCUSATE 100 MG CAPSULE PO (20:40)
[2021-04-01] MEDS: OXYCODONE IR 10 MG TABLET PO (20:41)
[2021-04-01] MEDS: METOCLOPRAMIDE 10 MG/2 ML INJ 5 MG IV (22:55)
[2021-04-01] MEDS: CALCIUM CARBONATE 500 MG TAB 1000 MG PO (22:55)
[2021-04-02 00:45] VITALS: BP 149/85; PULSE 58; RESP 18; TEMP 36.6; O2SAT 100
[2021-04-02] MEDS: hydrOXYzine pamoate 25 MG CAPSULE PO ×2 (01:02→08:31)
--- NOTE | 2021-04-02 02:45 | PC.NURSE ---
Addendum entered by Frida Samayoa R.N. 04/02/21 06:09: Has slept for past several hours but now awake and again complaining of nausea; medicated with Tums and Reglan. Patient up to bathroom and then back to bed after which she had a 120cc emesis. Complains also of 5/10 left knee pain so medicated with IV Dilaudid as not wanting to give po pain meds due to nausea/vomiting. Original Note: Patient is alert and oriented but mumbles and can be difficult to understand. Breath sounds CTA with RA sat of 100%. HRR with rate of 58. BP elevated at 149/85. Had nausea/vomiting on previous shift and had been sleeping but once awakened again complaining of feeling nauseated but without emesis so was medicated with Vistaril. Informed as to when she can have additional nausea medication but declines any further Zofran stating that doesn't help. Did get up around 0210 to go to the bathroom after which had a 50cc emesis but again declined the Zofran. BT present only in LUQ and denies flatus. Denied any dysuria, frequency or urgency with urination. Is able to move self in bed. Up to bathroom with walker and SBA. Aquacel dressing covered with abiola wrap to left knee is CDI. Denied any pain and declined scheduled Ibuprofen. CMS is intact although with limited ROM in left knee. Wearing bilateral calf SCD's. Fall risk score is high and bed alarm is activated.
[2021-04-02] MEDS: CALCIUM CARBONATE 500 MG TAB 1000 MG PO (05:56)
[2021-04-02] MEDS: METOCLOPRAMIDE 10 MG/2 ML INJ 5 MG IV (05:56)
[2021-04-02 06:00] VITALS: BP 139/73; PULSE 61; RESP 18; TEMP 36.6; O2SAT 95
[2021-04-02] MEDS: HYDROMORPHONE 0.5 MG INJ 0.2 MG IV ×2 (06:01→08:31)
[2021-04-02 06:54] LABS: Hematocrit 32.9 % (36-46); Hemoglobin 10.9 g/dL (12.0-16.0)
[2021-04-02 08:00] VITALS: BP 140/79; PULSE 80; RESP 18; TEMP 36.4; O2SAT 99
[2021-04-02] MEDS: LACTATED RINGERS 1,000 ML 100 ML IV (08:33)
[2021-04-02] MEDS: ACETAMINOPHEN 325 MG TABLET 650 MG PO ×2 (10:16→15:14)
[2021-04-02] MEDS: IBUPROFEN 400 MG TABLET PO ×2 (10:17→15:13)
[2021-04-02] MEDS: ASPIRIN EC 81 MG TABLET PO (10:17)
[2021-04-02] MEDS: DOCUSATE 100 MG CAPSULE PO (10:17)
--- NOTE | 2021-04-02 10:27 | PM.DS.1 ---
History of Present Illness History of Present Illness Date Patient Seen: 04/02/21 Time Patient Seen: 10:27 Chief complaint: Left knee pain s/p L TKA Narrative: The patient is complaining of moderate left knee pain this morning. She denies any new numbness or tingling. Her nausea and vomiting is resolving. No fevers, chills, night sweats. She is eager to work with physical therapy. She would like to be discharged home today under the care of her daughter if she is cleared. Discharge Providers Provider Discharge Date: 04/02/21 Primary care physician: ROBERTO George Consults: 04/01/21 06:10 Consult to Anesthesiology Routine Comment: Consulting Provider: Anesthesiologist Reason for consultation: Regional block for post operative pain control 04/01/21 14:33 Consult to Discharge Planning Routine Comment: Consult to Physical Therapy Evaluate & Treat Comment: Physician Instructions: postop TKA protocol Discharge provider: Keshia Barkley PA-C Summary Hospital Course Discharge Diagnosis: Left knee inflammatory arthritis Hospital Course: Date of procedure: 04/01/21 Time of procedure: 13:47 Procedure & Clinicians Procedure: Left total knee replacement Same procedure as scheduled: Yes Indications: The patient has had progressively worsening left knee pain with radiographic changes consistent with arthritis. Non-operative management has failed and the patient has requested total knee replacement. The risks, benefits and alternatives to surgery were discussed with the patient prior to proceeding. Risks discussed included, but were not limited to, failure to relieve pain, stiffness, infection, nerve damage, deep venous thrombosis, pulmonary embolism, stroke, coma, heart attack, permanent paralysis and , as well as the potential need for eventual revision of the prosthetic. Surgeon: Ezra Laura Ware Tester: Nenita Ribeiro Click Yes if Unassisted: No Anesthesia Type: Spinal and Local Operative Notes Findings: Severe inflammatory arthritic change with a significant effusion and inflamed synovium.? The arthritic change was worst in the medial compartment. Closure Type: primary Specimen(s): none sent Prosthetic devices, grafts, tissues, transplants, or devices: Implants used in this procedure were manufactured by the [employer] and [employer] and included the BCS II Journey total knee replacement with a size 4 left Oxinium femoral component, a size 3 left non porous tibial base plate, 9 mm cross-linked polyethylene insert and a 32 mm oval Hyacinth II patellar component. Applied: implant(s) Estimated Blood Loss (mL): 25 Blood products transfused: none Tourniquet time (min): 49 Status at Discharge Cognitive/behavioral status at discharge: oriented Functional status at discharge: uses cane/walker Overall status at discharge: patient is progressing back to baseline Exam Vital Signs (past 8 hours): - 04/02/21 06:00 04/02/21 08:00 Temperature 97.8 F 97.6 F Pulse Rate 61 80 Respiratory Rate 18 18 Blood Pressure 139/73 140/79 Pulse Oximetry 95 99 Oxygen Delivery Method Room Air Oxygen Flow Rate 0 Narrative Exam Narrative: Pleasant 56-year-old female, resting comfortably in bed, no acute distress. Her daughter is at bedside. Bilateral lower extremity motor functions are grossly intact. Sensation is grossly intact to light touch in bilateral lower extremities. Bilateral calves are soft, nontender to palpation. Dressing is clean, dry, intact. Objective Labs Result Diagrams: 04/02/21 06:25 Labs: Laboratory Results - last 24 hr 04/02/21 06:25 Hgb 10.9 L Hct 32.9 L PFSH Medical History Achilles tendinitis Anxiety Carpal tunnel syndrome, bilateral Chronic pain of left ankle Cough Depression Depression Dyslipidemia Heartburn History of vitamin D deficiency HLD (hyperlipidemia) Lumbar foraminal stenosis (05/2019) Osteoarthritis Osteoarthritis of left knee Pneumonia Right knee pain (04/2019) Shortness of breath Systolic murmur Surgical History History of right knee joint replacement (01/09/20) History of total left hip arthroplasty (07/20/19) Status post delivery Family History Father Diabetes mellitus Heart disease Hypertension High cholesterol Grandfather Colon cancer Grandmother Cervical cancer Mother Low blood pressure Alzheimer's dementia Social History household members: none Smoking Status: Never smoker alcohol intake: current Discharge Assessment & Plan Assessment and Plan Plan of Treatment: Stable status post left total knee arthroplasty -mobilize with PT. Weightbearing as tolerated from wheel walker -continue with current pain and DVT regimens -planning on DC home today if cleared by PT, nausea is resolving, pain is controlled Discharge Plan Discharge Plan Patient Disposition: Home Discharge orders & Medications Discharge Orders: Discharge (Order); Ordered 04/02/21 Ordered By: Keshia Barkley Prescriptions: New acetaminophen 500 mg capsule 500 mg PO Q4H MDD Max 6 tabs per day PRN (Reason: fever or pain) Qty: 90 RF: 0 aspirin 81 mg Tablet,Delayed Release (Dr/Ec) 81 mg PO BID PRN (Reason: X6 weeks to prevent blood clots) Qty: 90 RF: 0 docusate sodium 100 mg Capsule 100 mg PO BID PRN (Reason: Constipation from the narcotic pain med) Qty: 30 RF: 0 hydroxyzine pamoate 25 mg Capsule 25 mg PO Q6HR PRN (Reason: Nausea, and muscle spasms) Qty: 30 RF: 0 ibuprofen 400 mg Tablet 400 mg PO Q4HR MDD Max 2400 mg per day PRN (Reason: Pain/inflammation) Qty: 90 RF: 0 oxycodone 10 mg Tablet 10 mg PO Q3HR PRN (Reason: Pain, Severe (7-10)) Qty: 42 RF: 0 Discontinued oxycodone 5 mg Tablet 5 mg PO Q4H PRN (Reason: Pain, Moderate (4-6)) Qty: 40 RF: 0 Follow up/Referrals: Ezra Laura MD [Physician] - (10-14 days for postoperative visit) Keith Bauer ARNP [Primary Care Provider] - Diet/Activity/Treatments Diet: Diet as Tolerated and Regular Other treatments: Medications: -Aspirin 81mg twice daily x6 weeks to prevent blood clots. -OTC Tylenol 500 mg 1 tablet every 4 hours as needed for pain/fever. Max 6 tablets per day. -Ibuprofen 400 mg 1 tablet every 4 hours as needed for pain/inflammation. Max 2,400 mg per day. -Oxycodone 10 mg take 1 tablets every 4 hours as needed for moderate-severe pain (narcotic pain medication). -hydroxyzine (Vistaril) 25 mg as needed every 6 hours for spasms/nausea -As needed medications: -Ducolax and /or MiraLax as needed for constipation from narcotic pain medications. -Pepcid AC as needed for stomach upset (usually from aspirin or ibuprofen). Dressing/Wound care: -Remove the Tc wrap 48 hours after surgery. -Keep Aquacell dressing in place until postoperative follow-up office visit. -Okay to shower. Keep wound out of direct water stream. No soaking or submerging until all the scabs fall off (approximately 6 weeks). -Please call the office if dressing becomes wet, soiled, or saturated. Activities: -Weight-bearing as tolerated. Use front wheeled walker, and progress to cane when safe. -Continue with home exercises as directed by your physical therapist. -Elevate ?toes above the nose if you have significant swelling in your lower leg. (A wedge pillow is easiest.) -Ice your incision as needed for pain/inflammation/swelling. Protect your skin with a folded pillowcase. Follow-up: -Follow-up with your surgeon or PA in the office in 10-14 days after surgery. -Follow-up with your surgeon 6 weeks postoperatively. Call the office if you have chest pain, shortness of breath, significant swelling that will not resolve with elevating, fever over 101?, significantly worsening pain. [facility]: [phone] Skin/Wound/Dressing Care Report to your healthcare provider any signs of infection, such as:: chills, fever, night sweats, unusual drainage and unusual redness Visit Report/Discharge Packet Instructions: DI for Knee Replacement Stand Alone Forms: Surgery Discharge Discharge Data Primary Care Provider: Keith Bauer Attending Provider: Ezra Laura
--- NOTE | 2021-04-02 11:44 | PT.IPTN ---
Current Diagnoses Unilateral primary osteoarthritis, left knee (04/01/21) Surgery Performed Operation Date: 04/01/21 12:30 Actual Procedures p Total Knee Arthroplasty(Left) - Ezra Laura MD Physical Therapy Treatment Note M2 PT-IP Current Condition Start: 04/01/21 15:57 Freq: NEEDED Status: Active Protocol: Document 04/01/21 16:40 AW (Rec: 04/01/21 17:06 AW [id number]) Physical Therapy Current Condition Current Condition Evaluation Date 04/01/21 Treatment Diagnosis L TKA; difficulty in walking Onset Date 04/01/21 M3 PT-IP Subjective Start: 04/01/21 15:57 Freq: NEEDED Status: Active Protocol: Document 04/02/21 11:44 AW (Rec: 04/02/21 12:03 AW [id number]) Subjective Physical Therapy Visit Type Type Treatment Note Visit Start Time 11:20 Visit Stop Time 11:44 Total Visit Minutes 24 Notes Pt's daughter was present and participated in caregiver training. Number of IMPREGNATING MACHINE OPERATOR Visits 0 Physical Therapy Visit Comments Patient Comments Pt has been nauseous but is willing to participate with PT Therapy Pain Assessment Pain When Pain Assessed During Mobility Pain Present Pain Present Pain Reported Location left knee Intensity 6 Pain Management Techniques Apply Cold,Elevation,Re- positioning,Timing of Activity with Medications M4 PT-IP Mobility and Gait Start: 04/01/21 15:57 Freq: NEEDED Status: Active Protocol: Document 04/02/21 11:44 AW (Rec: 04/02/21 12:03 AW [id number]) PT-Transfer Assessment Sit to and From Stand Sit to and from Stand Standby Assistance,Use of Upper Extremities Equipment Transfer Assistive Device Gait Belt,Front Wheeled Walker Orthotic/Prosthetic Devices or Brace: No Transfers Transfer Destination Chair,Wheelchair Transfer Technique pt ambulated with FWW Transfer Ability Level of Assist Standby Assistance,Use of Upper Extremities Comments Mobility Comments Pt was reclined in the chair as PT arrived. She completed sit to stand SBA but needed cues to wait for FWW. She ambulated slowly but without need for rest break 120 feet to the therapy stairs. She completed stair training and then ambulated another 50 feet with FWW before requesting to sit. She transferred to w/c SBA and was wheeled back to her room. In the room, she stood and ambulated 10 feet to the chair, transferring SBA. Pt was left with call light and tray table in reach. Her daughter remained in room. Gait Assessment Gait Gait Assistance Required: Standby Assistance Distance (Feet) 120 Able to Maintain Weight Bearing Status Yes During Gait Assistive Devices Assistive Device Gait Belt,Front Wheeled Walker Orthotic/Prosthetic Devices or Brace: No Gait Deviations General Gait Pattern Antalgic,Decreased Stride Length,Decreased Feet Clearance,Step-to Gait Factors Limiting Gait Function Factors Limiting Gait Function Decreased Sensation,Decreased Strength,Limited Range of Motion,Pain,Poor Safety Awareness Comments Gait Comments Improved step-through pattern this date but still with decreased WB LLE. Stair Climbing Assessment Evaluation Level of Assist On Stairs Standby Assistance,Contact Guard Assistance Devices Stair Climbing Assistive Devices Straight Cane,Left Railing Technique/Endurance Stair Climbing Direction Ascend and Descend Stair Climbing Technique Step to Step Number of Steps Climbed 3 Comments Stair Climbing Comments Pt climbed 3 steps with left rail and SPC SBA. She needed cues for sequencing which her daughter was able to provide. Her daughter then provided CGA to practice platform step x 2 with SPC on the right side and SLATE PICKER/CGA on the left. PT-Balance Assessment Sitting Balance and Reactions Static Sitting Balance Ability Good Dynamic Sitting Balance Ability Good Standing Balance and Reactions Static Standing Balance Ability Good Dynamic Standing Balance Ability Fair Device Used FWW M5 PT-IP Objective Assessments Start: 04/01/21 15:57 Freq: NEEDED Status: Active Protocol: Document 04/01/21 16:40 AW (Rec: 04/01/21 17:06 AW [id number]) Orientation Orientation/Cognition Level of Alertness Alert Orientation Name,Day of Week,Place, Situation Language Function Ability No Deficits Noted Safety Awareness Decreased Safety Awareness Memory Description No Deficits Noted Gross Range of Motion Lower Extremity ROM Assessment Left Impaired Strength Lower Extremity Strength Assessment Left Impaired Comments Strength Comments RLE grossly 4+/5 Sensation Assessment Sensation Gross Sensation Right LE Impaired,Left LE Impaired Light Touch Impaired Sensation Description Numbness M6 PT-IP Treatment Start: 04/01/21 15:57 Freq: NEEDED Status: Active Protocol: Document 04/02/21 11:44 AW (Rec: 04/02/21 12:03 AW [id number]) Physical Therapy Treatment Exercises Exercises Passive Knee Extension Hang, Seated Knee Flexion/Extension Education Education Provided Weight Bearing Status,Safety Other Treatments Other Treatment Performed Emphasized ROM focus in early phases of rehab. Educated pt's daughter on proper guarding techniques and stair management. M7 PT-IP Assessment and Plan Start: 04/01/21 15:57 Freq: NEEDED Status: Active Protocol: Document 04/02/21 11:44 AW (Rec: 04/02/21 12:03 AW [id number]) PT Summary Assessment and Plan Summary Impairments Pain,ROM,Strength,Balance, Sensation,Bed Mobility, Transfers,Gait Progress Towards Goals Progressing Toward Goals Assessment Summary Nila was able to safely progress her gait distance today, limited primarily by nausea and left knee pain. She remains somewhat impulsive, requiring cues to keep the walker with her during transitions and verbal cues for sequencing stair navigation. Her daugher is able to provide appropriate cues and assist. Once medically cleared, pt will be safe to discharge home with assist and outpatient PT. Goals Bed Mobility Goal Independent Transfer Goal Independent,Front Wheeled Walker Gait Goal Independent,Front Wheel Walker Gait Distance 200 Other Goals - up/down 2 steps without rail min assist + 8 steps with R rail ascending SBA Days to Meet Goals 2 Frequency of Treatment Frequency Of Treatment Twice a Day Treatment Plan Physical Therapy Treatment Plan Bed Mobility Training,Transfer Training,Gait Training, Therapeutic Exercise,Balance Retraining,Post Op Education, Discharge Planning,Hot or Cold Pack Other Recommendations and Next Treatment progress gait training with Focus FWW; stair training; ther ex with ROM emphasis Weight Bearing Status Weight Bearing Status Weight Bear as Tolerated Allowed Weight Bearing Amount (enter % WBAT LLE or #) (%) Recommendations To Nursing Amount of Assist Needed Standby Assistance Discharge Recommendations PT Discharge Recommendations Home with Assistance, Outpatient PT Equipment Needed for Home Before raised toilet seat Discharge Transportation Needs at Discharge Private Vehicle
[2021-04-02 12:00] VITALS: BP 167/83; PULSE 69; RESP 18; TEMP 37.1; O2SAT 99
[2021-04-02] MEDS: OXYCODONE IR 5 MG TABLET PO (12:32)
--- NOTE | 2021-04-02 14:32 | CM.DANOTE ---
DCP/Assessment: Reviewed chart. Patient is a 56yr old female admitted [facility] for left TKA performed on 04-01-21. PCP is Keith Bauer. Primary payor is 1)[facility]. Met with patient this AM explained role. Patient's daughter at bedside. Patient with complaints of nausea and vomiting. It is unclear if patient will be discharging home today. Patient has outpatient therapy already arranged and daughter plans to stay with her for a few weeks. Patient has all needed DME. P: Home when stable. KJS Discharge Planning/Care Management Advanced directive, confirm from FAMILY Start: 04/01/21 14:46 Freq: Q24H Status: Active Protocol: Document 04/01/21 14:46 EM (Rec: 04/01/21 14:49 EM [id number]) Advance Directive, confirm on record Time 14:49 Person contacted self Copy received No CM Discharge Assessment Start: 04/02/21 14:29 Freq: Status: Active Protocol: Document 04/02/21 14:29 KJS (Rec: 04/02/21 14:32 KJS [id number]) Discharge Planning Assessment Assigned Director Of Group Sales MILO Barragan Contact Information Maria T (daughter)# Advance Directives? No Advance Directives on File No History Provided By Patient,Medical Record Prior Living Arrangements House Household Members none Type of transporation used prior to Drives own vehicle admit Independent with ADL's Yes Is patient alert and oriented? Yes Caregiver for Another No DME Already Rented / Owned FWW / Walker Patient/Family Preference OP PT Therapy Barriers to Discharge No Comment Patient plans to go outpatient for therpay. Patient's granddaughter staying with her for a few weeks. Discharge Plan Home Transportation Arrangement Family Referrals Initiated None needed Review Status In Process Next Review Type Continued Stay Review Pre-Anesthesia Assessment Start: 03/25/21 15:04 Freq: Status: Complete Protocol: Document 03/25/21 15:04 CAB (Rec: 03/25/21 15:12 CAB [id number]) Pre-Anesthesia Assessment Patient Information Reviewed Via Chart Review,Phone Assessment Diagnostic Results BMP/CMP,CBC,EKG Comment Labs/EKG @ 03/18/21, COVID screen @ 03/29/21 Primary Care Provider Millie Loco Seen Specialist in Last 12 Months Yes Specialist Seen Orthopedist Primary Language Dominican Preferred Language Dominican Auto Customize Painter Required No Height 160.02 cm Weight 74.843 kg Body Mass Index (BMI) 29.2 Hearing Ability Normal Visual Assist Glasses Dentition Type Teeth, Natural Present Barriers to Learning None Hx Anesthesia Reactions Yes: High spinal w/, nausea/vomitting Hx Family Anesthesia Reaction No Hx Malignant Hyperthermia No Hx Blood Transfusions No Anesthesia Review Requested No alcohol intake current alcohol intake frequency holidays/special occasions only Smoking Status Never smoker Substance Use Type does not use Pain Present Pain Reported Musculoskeletal Symptoms Abnormal Gait,Back Pain, Difficulty Walking,Joint Pain, Limited Range of Motion,Neck Pain,Radiating Pain into Limb History of Falling (Recent or History of Yes ) Patient is completely paralyzed or No completely immobile Prosthesis or Orthotic Device Cane,Front Wheel Walker Mental Status Oriented to own ability Is patient on oxygen? No Does patient have CULP/SOB No Hx Sleep Apnea No CPAP/BIPAP use not prescribed Currently Taking a Beta Porter No Can You Climb a Flight of Stairs Without Yes SOB Hx Chest Pain No Hx SOB No Hx Syncope or Dizziness No Anti-Coagulant Therapy No Has a Head Of Quality No Cardiac Testing No Hx Pacemaker/ICD No Pacemaker Rep Required? No Diet Type At Home Regular dysphagia No Urinary Catheter Present No Hx Urinary Self Catheterization No Diabetes No Patient No Lactating No Hx Drug Resistant Organism No Presence of External or Internal Medical Yes: Left hip/knee Devices Marital Status Single Lives With none Prior Living Arrangements House Number of Floors (Floors) Two Floors Support System Child/Children Patient Discharge Plan Description Return Home,Custodial Facility/Rehab Do You Have Any Spiritual Beliefs That No May Affect Your HC Choices? Do You Have Any Cultural Practices That No May Affect Your HC Choices? Who Can We Speak to About Patient's Care Family, friends Identifying Code for Release of Patient Declines to issue Information Health Care Proxy/Next of Kin Maria T (daughter) Health Care Proxy Emergency Contact Name Maria T (daughter) Emergency Contact Advance Directives? No Advance Directives on File No Power of Staff Design Engineer No
--- NOTE | 2021-04-02 14:39 | PC.NURSE ---
A&Ox4. Hypertensive, 140/79, all other vitals stable. Pain 5/10, left knee, controlled with PRN oxycodone, dilaudid and schedule tylenol and ibuprofen. Icing on and off. Had nausea and vomit over night but did not have any emesis this shift. Patient is still feeling nauseous, PRN visatril has helped and she gradually has felt better over the course of this shift. SBA to toilet. SCDs were on most of shift but patient asked for a break from them so she could sleep better. PT has cleared her for discharge. Daughter was at bedside today but left to run errands. This instructional writer called her to let her know her mom is ready for discharge and her daughter said she will be able to return around 1630 to take her home. Patient currently sleeping. Call light within reach, bed low.
--- NOTE | 2021-04-02 14:51 | PT-IP ANOTE ---
Contacted pt for PM tx but she stated preference to rest in preparation for discharge. She has already cleared stair training and her daughter will be able to provide all necessary assist. Pt allowed to sleep.
[2021-04-02 15:30] VITALS: BP 152/74; PULSE 64; RESP 18; TEMP 36.7; O2SAT 99
--- NOTE | 2021-04-02 17:34 | PC.NURSE ---
Patient discharged with daughter present at 17:34, no complaints of pain or discomfort. Patient taken to car by HOUSEHOLD COORDINATOR via wheelchair transport. IV removed. Discharge instructions reviewed with patient and all questions answered.
== END 2021-04-02 17:34 | disposition home or self-care (01) ==
LOC: OR 10:54 → AC 13:22
PROVIDERS: Admitting Provider Orthopaedic Surgery; PCP Registered Nurse Diabetes Educator; Referring Provider Orthopaedic Surgery; Visit Provider Orthopaedic Surgery
PROC: 0SRD0JZ Replacement of Left Knee Joint with Synthetic Substitute, Open Approach (ICD-10-PCS; CPT 27447; principal; 2021-04-01 12:30)
DX: M17.12 Unilateral primary osteoarthritis, left knee (principal)
CPT/HCPCS: 27447; 36415; 73560; 85014; 85018; 97110; 97116; 97161; C1776; G0378; C9290; J0171; J0690; J1100; J1170; J2250; J2270; J2405; J2704; J2765; J3010

== ENCOUNTER → 2021-07-05 17:11 | Outpatient (CLI) | payer OTHER, SELFPAY ==
[2021-04-01 14:43] VITALS: BMI 29.2
--- NOTE | 2021-07-05 17:12 | DI.MG.S_ITS ---
BILATERAL DIGITAL SCREENING MAMMOGRAM 3D/2D WITH CAD: 07/05/2021 CLINICAL: Routine screening. Family history of breast cancer. Comparison is made to exams dated: 05/10/2020 mammogram, 12/11/2017 mammogram, and 03/21/2016 mammogram - [facility]. There are scattered fibroglandular elements in both breasts. Current study was also evaluated with a Computer Aided Detection (CAD) system. No significant masses, calcifications, or other findings are seen in either breast. There has been no significant interval change. IMPRESSION: NEGATIVE There is no mammographic evidence of malignancy. A 1 year screening mammogram is recommended. This exam was interpreted at Station ID: [id number]. NOTE: For mammograms, a report in lay terms will be sent to the patient. Approximately 15% of breast malignancies will not be visualized mammographically. In the management of a palpable breast mass, a negative mammogram must not discourage biopsy of a clinically suspicious lesion. Electronically Signed By: Esequiel gonzales/tiera:07/08/2021 07:40:32 letter sent: Normal Exam ACR BI-RADS Category 1: Negative 3341F
== END ==
PROVIDERS: PCP Registered Nurse Diabetes Educator; Referring Provider Registered Nurse Diabetes Educator; Visit Provider Registered Nurse Diabetes Educator
DX: Z12.31 Encounter for screening mammogram for malignant neoplasm of breast (principal); Z80.3 Family history of malignant neoplasm of breast
CPT/HCPCS: 77063; 77067

== ENCOUNTER → 2021-10-08 08:15 | Outpatient (CLI) | payer OTHER, SELFPAY ==
[2021-08-15 11:15] VITALS: BMI 29.2
--- NOTE | 2021-10-08 | DI.US.S_ITS ---
PROCEDURE: US ABD AORTA ANEURYSM SCREEN INDICATIONS: ENLARGEMENT OF ABDOMINAL AORTA TECHNIQUE: Real time scanning was performed of the aorta and iliac arteries, with image documentation. COMPARISON: None. FINDINGS: Aorta: Proximal aortic diameter measures 1.9 cm. Mid-aorta measures 1.6 cm. Distal aortic diameter is 1.6 cm. Iliac arteries: Right common iliac artery measures 1.1 cm. Left common iliac artery measures 1.1 cm. IMPRESSION: No abdominal aortic aneurysm. Dictated by: Korin Zavala MD, PhD on 10/08/2021 at 8:58 Approved by: Korin Zavala MD, PhD on 10/08/2021 at 8:59
[2021-10-10 14:33] LABS: Fecal Immunochemical Test Negative (Negative)
== END ==
PROVIDERS: PCP Registered Nurse Diabetes Educator; Referring Provider Registered Nurse Diabetes Educator; Visit Provider Registered Nurse Diabetes Educator
DX: Z12.11 Encounter for screening for malignant neoplasm of colon (principal); I77.89 Other specified disorders of arteries and arterioles
CPT/HCPCS: 76706; 82274

== ENCOUNTER → 2022-03-18 14:30 | Outpatient (CLI) | payer OTHER, SELFPAY ==
[2021-08-15 11:15] VITALS: BMI 29.2
--- NOTE | 2022-03-18 14:32 | DI.RAD.S_ITS ---
PROCEDURE: XR ANKLE RT MIN 3V INDICATIONS: eval R ankle pain chronic TECHNIQUE: 3 views of the ankle were acquired. COMPARISON: [facility], CR, XR ANKLE LT MIN 3V, 02/13/2021, 15:50. FINDINGS: Bones: No fractures or dislocations. Ankle mortise is normally aligned. No suspicious bony lesions. Moderately severe degenerative changes of the right ankle. No fracture or dislocation. No erosions or evidence of inflammatory arthropathy. The calcaneus demonstrates a plantar spur. There are degenerative changes with joint space narrowing, osteophytes, and subchondral sclerosis of the midfoot. Soft tissues: No tibiotalar joint effusion. Achilles tendon appears normal. IMPRESSION: Degenerative changes of the ankle consistent with osteoarthritis. Dictated by: Isauro Sanderson M.D. on 03/18/2022 at 16:49 Approved by: Isauro Sanderson M.D. on 03/18/2022 at 16:57
== END ==
PROVIDERS: PCP Registered Nurse Diabetes Educator; Referring Provider Registered Nurse Diabetes Educator; Visit Provider Registered Nurse Diabetes Educator
DX: M25.571 Pain in right ankle and joints of right foot (principal)
CPT/HCPCS: 73610

== ENCOUNTER → 2022-04-18 06:59 | Outpatient (CLI) | payer OTHER, SELFPAY ==
[2021-08-15 11:15] VITALS: BMI 29.2
[2022-04-18 09:18] LABS: Add Manual Diff / Slide Review NO; Basophils Absolute Auto 0 /uL (0-100); Basophils Percent Auto 0.6 % (0-2); Eosinophils Absolute Auto 100 /uL (0-450); Eosinophils Percent Auto 2.6 % (2-4); Hematocrit 37.6 % (36-46); Hemoglobin 12.5 g/dL (12.0-16.0); Lymphocytes Absolute Auto 1700 /uL (1100-4500); Lymphocytes Percent Auto 31.1 % (25-40); Mean Corpuscular HGB Conc 33.2 % (30-36); Mean Corpuscular Hemoglobin 26.4 PG (26-34); Mean Corpuscular Volume 79.5 fL (80-100); Monocytes Absolute Auto 400 /uL (0-900); Monocytes Percent Auto 7.5 % (3-14); Neutrophils Absolute Auto 3100 /uL (1500-7000); Neutrophils Percent Auto 58.2 % (50-75); Platelet Count 222 X10^3/uL (150-400); Red Blood Cell Count 4.73 X10^6/uL (4.0-5.2); Red Cell Distribution Width 14.7 % (11.6-14.8); White Blood Cell Count 5.3 X10^3/uL (4.5-11.0)
[2022-04-18 09:39] LABS: Erythrocyte Sedimentation Rate 33 MM/HR (0-20)
[2022-04-18 09:50] LABS: Alanine Aminotransferase 18 IU/L (<35); Albumin 4.3 g/dL (3.5-5.0); Albumin Globulin Ratio 1.3 (1.0-2.8); Alkaline Phosphatase 114 U/L (38-126); Aspartate Aminotransferase 21 IU/L (14-36); BUN Creatinine Ratio 16.9 (6-22); Bilirubin Total 0.5 mg/dL (0.2-1.3); Blood Urea Nitrogen 12 mg/dL (7-17); C-Reactive Protein Quant 2.9 mg/dL (<1.0); Calcium 9.7 mg/dL (8.4-10.2); Carbon Dioxide 27 mmol/L (22-32); Chloride 104 mmol/L (98-107); Cholesterol 224 mg/dL (140-199); Estimated Glomerular Filt Rate > 60 mL/min (>60); Globulin 3.3 g/dL (1.7-4.1); Glucose 102 mg/dL (70-100); HDL Cholesterol 47 mg/dL (40-60); HEMOLYSIS < 15 (0-50); LDL Cholesterol Calculated 156 mg/dL (<100); Potassium 4.3 mmol/L (3.4-5.1); Sodium 143 mmol/L (137-145); Total Protein 7.6 g/dL (6.3-8.2); Triglycerides 104 mg/dL (35-150); Uric Acid 5.8 mg/dL (2.5-6.2)
[2022-04-18 09:57] LABS: Rheumatoid Factor < 8.6 IU/mL (<12.0)
[2022-04-18 10:22] LABS: TSH w/ Reflex to FT4 1.77 uIU/mL (0.47-4.68)
[2022-04-21 21:23] LABS: CCP Antibodies IgG/IgA 2 units (0-19)
[2022-04-22 18:16] LABS: ANA Screen, IFA Positive (.)
== END ==
PROVIDERS: PCP Registered Nurse Diabetes Educator; Referring Provider Registered Nurse Diabetes Educator; Visit Provider Registered Nurse Diabetes Educator
DX: E78.5 Hyperlipidemia, unspecified (principal); M25.50 Pain in unspecified joint; R73.01 Impaired fasting glucose
CPT/HCPCS: 36415; 80053; 80061; 83036; 84443; 84550; 85025; 85651; 86038; 86140; 86200; 86430

== ENCOUNTER → 2023-01-21 16:32 | Outpatient (CLI) | payer OTHER, SELFPAY ==
[2021-08-15 11:15] VITALS: BMI 29.2
--- NOTE | 2023-01-21 | DI.MG.S_ITS ---
BILATERAL DIGITAL SCREENING MAMMOGRAM 3D/2D WITH CAD: 01/21/2023 CLINICAL: Routine screening. Family history of breast cancer. Comparison is made to exams dated: 07/05/2021 mammogram, 05/10/2020 mammogram, and 12/11/2017 mammogram - [facility]. There are scattered areas of fibroglandular density in both breasts (category b / 25%-50% glandular tissue). Current study was also evaluated with a Computer Aided Detection (CAD) system. No significant masses, calcifications, or other findings are seen in either breast. There has been no significant interval change. IMPRESSION: NEGATIVE There is no mammographic evidence of malignancy. A 1 year screening mammogram is recommended. Based on the Tyrer Cuzick model (a risk assessment model) the patient's lifetime risk is 9.3% and her 10 year risk is 3.4%. According to the ACR, ACS, and NCCN guidelines, an annual breast MRI exam along with mammogram is recommended if the patient's lifetime risk is 20% or greater. This exam was interpreted at Station ID: [id number]. NOTE: For mammograms, a report in lay terms will be sent to the patient. Approximately 15% of breast malignancies will not be visualized mammographically. In the management of a palpable breast mass, a negative mammogram must not discourage biopsy of a clinically suspicious lesion. Electronically Signed By: Fariba padilla/tiera:01/22/2023 17:07:58 letter sent: Normal Exam ACR BI-RADS Category 1: Negative 3341F
== END ==
PROVIDERS: PCP Registered Nurse Diabetes Educator; Referring Provider Registered Nurse Diabetes Educator; Visit Provider Registered Nurse Diabetes Educator
DX: Z12.31 Encounter for screening mammogram for malignant neoplasm of breast (principal); Z80.3 Family history of malignant neoplasm of breast
CPT/HCPCS: 77063; 77067

== ENCOUNTER → 2024-01-26 13:45 | Outpatient (CLI) | payer OTHER, SELFPAY ==
[2021-08-15 11:15] VITALS: BMI 29.2
--- NOTE | 2024-01-26 13:46 | DI.MG.S_ITS ---
BILATERAL DIGITAL DIAGNOSTIC MAMMOGRAM 3D/2D: 01/26/2024 CLINICAL: Pain Left Breast; Axillary Fullness. Comparison is made to exams dated: 01/21/2023 mammogram, 07/05/2021 mammogram, and 05/10/2020 mammogram - [facility]. There are scattered areas of fibroglandular density in both breasts (category b / 25%-50% glandular tissue). A BB marker was placed in the area of clinical concern in the left breast, and no mammographic abnormality is identified. No significant masses, calcifications, or other findings are seen in either breast. IMPRESSION: INCOMPLETE: NEEDS ADDITIONAL IMAGING EVALUATION No mammographic abnormality in the area of clinical concern. Recommend further evaluation with targeted breast ultrasound, which will immediately follow this exam. Based on the Tyrer Cuzick model (a risk assessment model) the patient's lifetime risk is 9.0% and her 10 year risk is 3.6%. According to the ACR, ACS, and NCCN guidelines, an annual breast MRI exam along with mammogram is recommended if the patient's lifetime risk is 20% or greater. This exam was interpreted at Station ID: [id number]. NOTE: For mammograms, a report in lay terms will be sent to the patient. Approximately 15% of breast malignancies will not be visualized mammographically. In the management of a palpable breast mass, a negative mammogram must not discourage biopsy of a clinically suspicious lesion. Electronically Signed By: Fariba Curtis M.D., Ph.D. eb/:01/26/2024 14:54:24 ACR BI-RADS Category 0: Incomplete 3340F
--- NOTE | 2024-01-26 13:46 | DI.US.S_ITS ---
LIMITED ULTRASOUND OF LEFT BREAST AND AXILLA: 01/26/2024 CLINICAL: Diffuse left breast pain. Axillary fullness. Infraclavicular lumps felt by clinician only. Comparison is made to exams dated: 01/26/2024 mammogram, 01/21/2023 mammogram, 07/05/2021 mammogram, 05/10/2020 mammogram, 12/11/2017 mammogram, and 03/21/2016 mammogram - . Real-time ultrasound of the left breast 12-4 o'clock, and axilla regions was performed. Mckinley scale images of the real-time examination were reviewed. No sonographic abnormality in the areas of clinical concern. Emulsion Coater images were taken from 12-4 o'clock at a distance of 18 cm from the nipple. No sonographic abnormality in the infraclavicular region. IMPRESSION: NEGATIVE No sonographic abnormality in the areas of clinical concern. No mammographic or sonographic evidence of malignancy. A 1 year screening mammogram is recommended. Clinical follow-up is also recommended, and further management of palpable abnormalities or other focal signs or symptoms should be based on the results of clinical evaluation. If palpable abnormality or other concerning symptom persists or progresses, further clinical evaluation should be considered. Findings and recommendations were conveyed to the patient during today's evaluation. This exam was interpreted at Station ID: [id number]. Electronically Signed By: Fariba Curtis M.D., Ph.D. eb/:01/26/2024 14:56:53 letter sent: Clinical Evaluation Ultrasound BI-RADS: 1 Negative
== END ==
PROVIDERS: PCP Registered Nurse Diabetes Educator; Referring Provider Registered Nurse Diabetes Educator; Visit Provider Registered Nurse Diabetes Educator
DX: R92.2 Inconclusive mammogram (principal); R92.323 Mammographic fibroglandular density, bilateral breasts; N64.4 Mastodynia; R59.0 Localized enlarged lymph nodes; R22.32 Localized swelling, mass and lump, left upper limb
CPT/HCPCS: 76642; 77066; G0279

== ENCOUNTER 2024-06-07 09:01 | Emergency (ER) | payer OTHER, SELFPAY ==
[2021-08-15 11:15] VITALS: BMI 29.2
[2024-06-07 09:31] VITALS: BP 177/89; PULSE 67; RESP 18; TEMP 36.9; O2SAT 97; BMI 32.7
[2024-06-07 09:51] VITALS: BP 156/99; PULSE 104; O2SAT 99
[2024-06-07 10:00] VITALS: PULSE 61; O2SAT 97
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
[2024-06-07] MEDS: ACETAMINOPHEN 325 MG TABLET 975 MG PO (10:14)
[2024-06-07] MEDS: IBUPROFEN 400 MG TABLET 800 MG PO (10:14)
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
[2024-06-07 10:33] VITALS: PULSE 60; O2SAT 98
[2024-06-07 11:00] VITALS: PULSE 56; O2SAT 98
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
== END 2024-06-07 12:00 | disposition home or self-care (01) ==
PROVIDERS: Emergency Provider Emergency Medicine; PCP Registered Nurse Diabetes Educator
DX: S83.91XA Sprain of unspecified site of right knee, initial encounter (principal); M25.511 Pain in right shoulder; V89.2XXA Person injured in unspecified motor-vehicle accident, traffic, initial encounter; Y93.89 Activity, other specified; Y92.410 Unspecified street and highway as the place of occurrence of the external cause
CPT/HCPCS: 71046; 73562; 99283

== ENCOUNTER → 2024-07-04 18:58 | Outpatient (CLI) | payer OTHER, SELFPAY ==
[2021-08-15 11:15] VITALS: BMI 29.2
--- NOTE | 2024-07-04 19:02 | DI.RAD.S_ITS ---
PROCEDURE: XR FOOT LT MIN 3V INDICATIONS: Ankle pain TECHNIQUE: 3 views of the foot were acquired. COMPARISON: None. FINDINGS: Bones: No fractures or dislocations. No suspicious bony lesions. Intertarsal arthritic changes Soft tissues: No tibiotalar joint effusion. Achilles tendon appears normal. IMPRESSION: Arthritic changes. No fracture Approved by: Hemanth Loredo M.D. on 07/06/2024 at 15:12
--- NOTE | 2024-07-04 19:02 | DI.RAD.S_ITS ---
PROCEDURE: XR KNEE RT 3V INDICATIONS: Knee pain TECHNIQUE: 3 views of the knee were acquired. COMPARISON: [facility], , XR KNEE RT 3V, 06/07/2024, 10:21. FINDINGS: Bones: No fractures or dislocations. No suspicious bony lesions. Total knee arthroplasty in good position Soft tissues: No joint effusion. No suspicious soft tissue calcifications. IMPRESSION: Right knee arthroplasty in good position. No hardware failure or loosening Approved by: Hemanth Loredo M.D. on 07/06/2024 at 15:11
--- NOTE | 2024-07-04 19:02 | DI.RAD.S_ITS ---
PROCEDURE: XR ANKLE LT MIN 3V INDICATIONS: Ankle pain TECHNIQUE: 3 views of the ankle were acquired. COMPARISON: [facility], CR, XR ANKLE RT MIN 3V, 03/18/2022, 14:33. FINDINGS: Bones: No fractures or dislocations. Ankle mortise is normally aligned. No suspicious bony lesions. Posterior and plantar calcaneal spurs. Medial malleolar well corticated ossicle Soft tissues: No tibiotalar joint effusion. Achilles tendon appears normal. IMPRESSION: No acute bony abnormality or significant effusion. Approved by: Hemanth Loredo M.D. on 07/06/2024 at 15:08
== END ==
LOC: RAD 19:01
PROVIDERS: PCP Registered Nurse Diabetes Educator; Referring Provider Nurse Practitioner Family; Visit Provider Nurse Practitioner Family
DX: M25.572 Pain in left ankle and joints of left foot (principal); M25.561 Pain in right knee; Z96.651 Presence of right artificial knee joint
CPT/HCPCS: 73562; 73610; 73630

== ENCOUNTER → 2025-01-05 07:09 | Outpatient (CLI) | payer OTHER, SELFPAY ==
[2021-08-15 11:15] VITALS: BMI 29.2
[2025-01-05 08:23] LABS: Hematocrit 41.4 % (36-46); Hemoglobin 13.9 g/dL (12.0-16.0); Mean Corpuscular HGB Conc 33.6 % (30-36); Mean Corpuscular Hemoglobin 30.1 PG (26-34); Mean Corpuscular Volume 89.5 fL (80-100); Platelet Count 171 X10^3/uL (150-400)
[2025-01-05 08:32] LABS: Hemoglobin A1C% w Est Avg Glu 5.8 % (4.0-6.0)
[2025-01-05 08:54] LABS: Alanine Aminotransferase 20 IU/L (<35); Albumin 4.4 g/dL (3.5-5.0); Albumin Globulin Ratio 1.8 (1.0-2.8); Alkaline Phosphatase 90 U/L (38-126); Blood Urea Nitrogen 20 mg/dL (7-17); Calcium 9.5 mg/dL (8.4-10.2); Carbon Dioxide 25 mmol/L (22-32); Chloride 107 mmol/L (98-107); Cholesterol 231 mg/dL (140-199); Estimated Glomerular Filt Rate > 60 mL/min (>60); Globulin 2.5 g/dL (1.7-4.1); Glucose 97 mg/dL (70-99); HDL Cholesterol 53 mg/dL (40-60); HEMOLYSIS < 15 (0-50); Potassium 4.3 mmol/L (3.4-5.1); Sodium 139 mmol/L (137-145); Total Protein 6.9 g/dL (6.3-8.2); Triglycerides 175 mg/dL (35-150)
[2025-01-05 09:24] LABS: TSH w/ Reflex to FT4 2.66 uIU/mL (0.47-4.68)
== END ==
PROVIDERS: PCP Registered Nurse Diabetes Educator; Referring Provider Registered Nurse Diabetes Educator; Visit Provider Registered Nurse Diabetes Educator
DX: E78.5 Hyperlipidemia, unspecified (principal); R73.01 Impaired fasting glucose
CPT/HCPCS: 36415; 80053; 80061; 83036; 84443; 85027

== ENCOUNTER 2025-04-10 07:27 | Day surgery (SDC) | payer OTHER, SELFPAY ==
[2021-08-15 11:15] VITALS: BMI 29.2
[2025-04-10 07:46] VITALS: BP 112/70; PULSE 55; RESP 16; TEMP 36.3; O2SAT 99
[2025-04-10] MEDS: LACTATED RINGERS 1,000 ML 42 ML IV (07:55)
--- NOTE | 2025-04-10 08:25 | PM.HP.IH.1 ---
History of Present Illness History of Present Illness Date Patient Seen: 04/10/25 Chief complaint: [facility] Medical History (Updated 03/03/25 @ 11:24 by ROBERTO George) Impaired fasting blood sugar Psoriatic arthritis Achilles tendinitis Chronic pain of left ankle Osteoarthritis of left knee Systolic murmur Dyslipidemia History of vitamin D deficiency Depression Shortness of breath Cough Depression Anxiety Osteoarthritis Heartburn HLD (hyperlipidemia) Pneumonia Carpal tunnel syndrome, bilateral Right knee pain (04/2019) Lumbar foraminal stenosis (05/2019) Surgical History History of right knee joint replacement (01/09/20) History of total left hip arthroplasty (07/20/19) Status post delivery Family History Father Diabetes mellitus Heart disease Hypertension High cholesterol Grandfather Colon cancer Grandmother Cervical cancer Mother Low blood pressure Alzheimer's dementia Social History household members: none Smoking Status: Never smoker alcohol intake: current Meds Home Medications and Allergies Home Medications ?Medication ?Instructions ?Recorded ?Confirmed ?Type ibuprofen 400 mg tablet 400 mg PO Q4HR PRN 04/02/21 04/10/25 Rx Pain/inflammation #90 tabs methotrexate sodium 25 mg/mL mg IM 01/06/24 02/28/25 History injection solution syringe with needle 1 mL 25 gauge #50 ea 01/06/24 02/28/25 History x 5/8 (UltiCare) adalimumab-adaz 40 mg/0.4 mL mg SUBCUT 07/04/24 02/28/25 History subcutaneous pen injector (Hyrimoz(CF) Pen) escitalopram oxalate 10 mg tablet 5 mg (1/2 x 10 mg) PO DAILY #30 02/28/25 04/10/25 Rx (Lexapro) tabs Held on 04/10/25. Instructions: Not taking yet Allergies Allergy/AdvReac Type Severity Reaction Status Date / Time No Known Drug Allergies Allergy Verified 04/10/25 07:41 Exam Vital Signs (past 8 hours): - 04/10/25 07:46 Temperature 97.3 F L Pulse Rate 55 L Respiratory Rate 16 Blood Pressure 112/70 Pulse Oximetry 99 Oxygen Delivery Method Room Air Oxygen Delivery Method Room Air Narrative Exam Narrative: Chest clear to auscultation percussion Cardiac exam reveals no S3 or murmur Oropharynx free of lesion Assessment & Plan Assessment & Plan narrative: 1st screening colonoscopy with a family history of colon cancer in distant relative/grandparents. Risks, benefits, alternatives have been explained. Time-Based Coding :: [TOTAL MINUTES] spent with patient and on the chart (including review of chart, obtaining history, exam, reviewing outside data, placing orders, documenting exam and treatment plan, and counseling patient) on [DATE]. [employer] Document charge(s): No
--- NOTE | 2025-04-10 08:27 | PM.OP.COLON ---
Operative Date/Time/Diagnoses Date of procedure: 04/10/25 Time of procedure: 08:53 Pre-op diagnosis: See indication and findings Post-op diagnosis: same Procedure & Clinicians Study performed: Colonoscopy Same procedure(s) as scheduled: Yes Surgeon: Kevin Gardner Anesthesia Type: Other Procedure Notes Procedure in detail: After informed consent was obtained the patient was placed in left lateral decubitus position. The video colonoscope was introduced the rectum slowly advanced to the cecum. On slow withdrawal mucosa was carefully examined. The scope was removed. The patient tolerated procedure well. Blood loss none Complications none Sedation mac Findings 1. Mild internal hemorrhoids 2. Otherwise negative colonoscopy to cecum Patient should have follow-up colonoscopy in 10 years Estimated Blood Loss: 0 Complications: none
[2025-04-10 09:00] VITALS: BP 132/80; PULSE 74; RESP 20; TEMP 36.4; O2SAT 97
[2025-04-10 09:07] VITALS: BP 114/58; PULSE 55; RESP 14; TEMP 36.3; O2SAT 99
== END 2025-04-10 09:36 | disposition home or self-care (01) ==
PROVIDERS: PCP Registered Nurse Diabetes Educator; Referring Provider Registered Nurse Diabetes Educator; Visit Provider Internal Medicine Gastroenterology
PROC: 0DJD8ZZ Inspection of Lower Intestinal Tract, Via Natural or Artificial Opening Endoscopic (ICD-10-PCS; CPT 45378; principal; 2025-04-10 08:30)
DX: Z12.11 Encounter for screening for malignant neoplasm of colon (principal); K64.8 Other hemorrhoids
CPT/HCPCS: 45378; J2704; J7120